=== PATIENT | female | born 1960 | race African-American/Black ===

== ENCOUNTER → 2020-06-30 13:29 | Outpatient (BNV) | payer OTHER, SELFPAY | PROVIDERS: PCP Internal Medicine; Visit Provider Internal Medicine | DX: D61.818 Other pancytopenia (principal) | CPT/HCPCS: 99213; 99214 ==

== ENCOUNTER → 2020-07-14 08:28 | Outpatient (BNVA) | payer OTHER, SELFPAY | PROVIDERS: PCP Internal Medicine; Visit Provider Physician Assistant | DX: Z76.89 Persons encountering health services in other specified circumstances (principal) ==

== ENCOUNTER → 2020-07-28 13:40 | Outpatient (BNVA) | payer OTHER, SELFPAY | PROVIDERS: PCP Internal Medicine; Visit Provider Nurse Practitioner | DX: Z76.89 Persons encountering health services in other specified circumstances (principal) ==

== ENCOUNTER 2020-09-29 13:00 | Outpatient (RCR) | payer OTHER, SELFPAY ==
--- NOTE | 2020-07-21 17:06 | MHC.PT.EP ---
[facility] [place] Office [place] Office [place] Office [address] [phone] F: [phone] F: [phone] F: [phone] F: [phone] Physical Therapy Plan of Care Date of Evaluation: 07/21/20 Date of Surgery: BARIATRIC JAN 06 2019 Diagnosis: PHYSICAL DECONDITIONING Assessment: Pt IS 60 YO F REFERRED TO PT FROM [facility] MANAGEMENT WITH DECONDITIONING, HOWEVER, MAIN ISSUE AT THIS TIME IS L MEDIAL KNEE PAIN. Pt HAD BARIATRIC SURGERY LAST DECEMBER AND HAS BEEN DOING WELL WITH WT LOSS AND EXERCISE BUT HAVING SOME MEDIAL KNEE PAIN ON L (ARTHROSCOPIC SURGERY IN PAST). 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 PRESENTS WITH L KNEE PAIN, LLD, SLIGHT DECREASE IN L KNEE EXTENSION. 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 SEEMS TO BENEFIT INITIALLY FROM 3 PART LIFT( 1/2 INCH) ADDED TO L SHOE AND KT TO UNLOAD L FAT PAD. Pt QUESTIONS ABILITY TO USE CARDIAC AREA FOR EXERCISE AT THIS TIME (COVID) Frequency and Duration: The patient will be seen 1X/WK X 6 WKS Short Term Goals: 1. I HEP WITH DC EX PLAN 2. INCREASED AWARENESS L KNEE CARE 3. IMPROVED GT PATTERN WITH LIFT 4. 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 DECREASED L KNEE PAIN AT LEAST 50% WITH ADLS 2. IMPROVED LEFI Treatment Plan: Modalities to reduce pain, spasms and effusion. Manual therapy to restore motion and function. Therapeutic exercise to improve strength and flexibility. Neuromuscular re-education for posture and balance. Therapeutic activities to return to functional activities of daily living. Electronically signed by: JONAS ROLAND PT Please sign and return to therapist. Thank you for your referral.
--- NOTE | 2020-10-02 14:04 | MHC.PT.DC ---
[facility] [place] Office [place] Office [place] Office [address] [facility] [phone] F: [phone] F: [phone] F: [phone] F: [phone] Physical Therapy Discharge Report Diagnosis: PHYSICAL DECONDITIONING Date of Surgery: BARIATRIC JAN 06 2019 Date of Evaluation: 07/21/20 Date of Discharge: 09/29/20 Treatments to Date: 7 Cancellations to Date: 1 No Shows to Date: 1 Discharge Status: Achieved Goals Discharge Summary: GOOD PERF EXS, HAS MET PT GOALS, Electronically signed by: JONAS ROLAND PT Please sign and return to therapist. Thank you for your referral.
== END 2020-10-02 14:10 | disposition other institution (70) ==
LOC: HO.PT 13:00
PROVIDERS: Visit Provider Physician Assistant
DX: R53.81 Other malaise (principal)
CPT/HCPCS: 97110; 97140; 97162; 97530

== ENCOUNTER → 2020-10-10 08:14 | Outpatient (BNVA) | payer OTHER, SELFPAY | PROVIDERS: PCP Nurse Practitioner Family; Visit Provider Dietitian, Registered ==

== ENCOUNTER → 2020-12-15 10:57 | Outpatient (BNVA) | payer OTHER, SELFPAY | PROVIDERS: PCP Nurse Practitioner Family; Referring Provider Internal Medicine; Visit Provider Physician Assistant ==

== ENCOUNTER 2021-01-25 07:37 | Outpatient (REF) | payer OTHER, SELFPAY ==
--- NOTE | ~2021-01-25 | XR_ITS ---
EXAMINATION: XR LUMBOSACRAL SPINE WITH OBLIQUES CLINICAL INFORMATION: Spondylolisthesis. COMPARISON: Previous lumbar spine x-ray September 2015. TECHNIQUE: 7 views of the spine including bilateral oblique and flexion and extension views. FINDINGS: There may be a transitional vertebral body segment or 6 lumbar-type vertebral bodies. For the purposes of this dictation, levels are designated to match the September 2015 dictation with the transitional segment designated inferiorly. No fracture or dislocation is seen. There is mild curvature of the lower lumbosacral spine to the right. There is mild 5 mm anterior subluxation of L4 with respect to L5. No instability on flexion-extension views is seen. This is new or increased compared to 2016 exam. There is degenerative disc disease at L5-S1 and at the transitional sacral articulation. There is bilateral lower lumbar spine facet arthritis. No pars defect is seen. XR/XR lumbar spine 6V w bending IMPRESSION: Transitional vertebral body segment. For the purposes of this dictation, transitional segment is designated inferiorly similar to September 2015 exam. 5 mm anterior subluxation of L4 with respect to L5 stable on flexion-extension views. Degenerative disc disease at L5-S1. Lower lumbar spine facet arthritis.
== END 2021-01-25 07:38 | disposition home or self-care (01) ==
LOC: HO.XRAY 07:37
PROVIDERS: PCP Internal Medicine; Visit Provider Anesthesiology
DX: M43.10 Spondylolisthesis, site unspecified (principal)
CPT/HCPCS: 72114

== ENCOUNTER → 2021-02-01 15:08 | Outpatient (BNVA) | payer OTHER, SELFPAY | PROVIDERS: PCP Internal Medicine; Visit Provider Anesthesiology ==

== ENCOUNTER → 2021-03-02 13:55 | Outpatient (BNVA) | payer OTHER, SELFPAY | PROVIDERS: PCP Nurse Practitioner Family; Visit Provider Nurse Practitioner ==

== ENCOUNTER 2021-03-15 12:09 | Day surgery (SDC) | payer OTHER, SELFPAY ==
[2021-03-08 15:08] VITALS: BMI 24.8
--- NOTE | 2021-03-14 10:54 | HO.ANESPROP2 ---
Documented by User: Rosenda Sandraney 03/14/21 11:01 HPI - Anesthesia Eval Consult details Narrative: 61yo F for Bilateral L3-L5 Diagnostic Medial Branch Block PMFSH Active Problems Active Problems: All Active Problems (Updated 02/01/21 @ 15:35 by Raghav Doan MD) Chronic pain syndrome (Acute) Spondylosis of lumbar region without myelopathy or radiculopathy (Acute) Spondylolisthesis (Acute) Anxiety and depression (Acute) Chronic idiopathic constipation (Acute) Family history of colon cancer (Acute) GERD (gastroesophageal reflux disease) (Acute) Intestinal malabsorption following gastrectomy (Acute) S/P laparoscopic sleeve gastrectomy (Acute) Arthritis of left knee (Acute) Pancytopenia (Chronic) Essential (primary) hypertension (Acute) Past Medical History Medical History (Updated 03/15/21 @ 12:47 by Karena Modi RN) Anxiety and depression CAD (coronary artery disease) Chronic pain syndrome Essential (primary) hypertension Hx of allergic rhinitis Intestinal malabsorption following gastrectomy Spondylolisthesis Spondylosis of lumbar region without myelopathy or radiculopathy Family History Family History Father No problems noted. Mother Lung cancer Brother Colon cancer Family/Other Intestinal cancer Maternal Grandmother Breast cancer Surgical History Surgical History History of bariatric surgery History of section History of cholecystectomy History of esophagogastroduodenoscopy (EGD) History of hysterectomy Hx of colonoscopy S/P laparoscopic sleeve gastrectomy Social History Social History Alcohol intake: current Alcohol intake frequency: does not drink Patient Tobacco Use Status: Tobacco use Unknown Advance Directives Information Provided: No Meds Allergies Allergy/AdvReac Type Severity Reaction Status Date / Time morphine [MORPHINE] Allergy Intermediate VOMITING Verified 03/15/21 12:48 amoxicillin [Amoxicillin] Allergy Mild HIVES Verified 03/15/21 12:48 sulfamethoxazole Allergy Mild HIVES Verified 03/15/21 12:48 [From Bactrim] trimethoprim [From Bactrim] Allergy Mild HIVES Verified 03/15/21 12:48 Home Medications Medication Instructions Recorded Confirmed Last Taken Type venlafaxine 75 mg tablet 75 mg PO DAILY tab 05/30/20 03/08/21 03/15/21 12:40 History vitamin A 10,000 unit capsule 2 cap PO DAILY 05/30/20 03/08/21 Unknown History cholecalciferol (vitamin D3) 25 25 mcg PO BID 06/30/20 03/08/21 Unknown History mcg (1,000 unit) tablet (Vitamin D3) cyanocobalamin (vitamin B-12) 2,000 mcg PO DAILY 06/30/20 03/08/21 Unknown History 2,000 mcg tablet,extended release (Vitamin B-12 ER) multivitamin 1 tab PO DAILY 06/30/20 03/08/21 Unknown History omeprazole 20 mg capsule,delayed 20 mg PO BID 07/28/20 03/08/21 Unknown History release aspirin 81 mg tablet,delayed 81 mg PO DAILY 12/15/20 03/08/21 03/01/21 History release sodium fluoride 1.1 %-potassium PO 03/02/21 Unknown History nitrate 5 % dental paste Exam Exam Date and Time: March 14, 2021 1054 Height,Weight and Vital Signs: Height 5 ft 6 in Weight 69.91 kg Assessment and Plan Assessment Anesthesia Assessment: Chart Reviewed Documented by User: Judie Snell 03/15/21 13:08 [facility] Past Medical History Medical History (Updated 03/15/21 @ 12:47 by Karena Modi RN) Anxiety and depression CAD (coronary artery disease) Chronic pain syndrome Essential (primary) hypertension Hx of allergic rhinitis Intestinal malabsorption following gastrectomy Spondylolisthesis Spondylosis of lumbar region without myelopathy or radiculopathy Functional capacity: independent ambulation Patient : No Family History Family History Father No problems noted. Mother Lung cancer Brother Colon cancer Family/Other Intestinal cancer Maternal Grandmother Breast cancer Family history of problems with anesthesia: No Surgical History Surgical History History of bariatric surgery History of section History of cholecystectomy History of esophagogastroduodenoscopy (EGD) History of hysterectomy Hx of colonoscopy S/P laparoscopic sleeve gastrectomy Social History Social History Alcohol intake: current Alcohol intake frequency: does not drink Patient Tobacco Use Status: Tobacco use Unknown Advance Directives Information Provided: No Meds Allergies Allergy/AdvReac Type Severity Reaction Status Date / Time morphine [MORPHINE] Allergy Intermediate VOMITING Verified 03/15/21 12:48 amoxicillin [Amoxicillin] Allergy Mild HIVES Verified 03/15/21 12:48 sulfamethoxazole Allergy Mild HIVES Verified 03/15/21 12:48 [From Bactrim] trimethoprim [From Bactrim] Allergy Mild HIVES Verified 03/15/21 12:48 Home Medications Medication Instructions Recorded Confirmed Last Taken Type venlafaxine 75 mg tablet 75 mg PO DAILY tab 05/30/20 03/08/21 03/15/21 12:40 History vitamin A 10,000 unit capsule 2 cap PO DAILY 05/30/20 03/08/21 Unknown History cholecalciferol (vitamin D3) 25 25 mcg PO BID 06/30/20 03/08/21 Unknown History mcg (1,000 unit) tablet (Vitamin D3) cyanocobalamin (vitamin B-12) 2,000 mcg PO DAILY 06/30/20 03/08/21 Unknown History 2,000 mcg tablet,extended release (Vitamin B-12 ER) multivitamin 1 tab PO DAILY 06/30/20 03/08/21 Unknown History omeprazole 20 mg capsule,delayed 20 mg PO BID 07/28/20 03/08/21 Unknown History release aspirin 81 mg tablet,delayed 81 mg PO DAILY 12/15/20 03/08/21 03/01/21 History release sodium fluoride 1.1 %-potassium PO 03/02/21 Unknown History nitrate 5 % dental paste Exam Airway Mallampati Class: II TM Dist: >3cm Neck ROM: Full Heart: RRR Lungs: CTA Assessment and Plan Final Anesthetic Review Family History of Problems with Anesthesia: No
--- NOTE | ~2021-03-15 | FL_ITS ---
EXAMINATION: XR FLUOROSCOPY WITH IMAGES CLINICAL INFORMATION: Medial branch block COMPARISON: Radiographs lumbar spine 01/25/2021 TECHNIQUE: Fluoroscopy performed by Dr. Raghav Doan. Fluoroscopy time: 0.6 minutes DAP: 5.04 Gycm2 Images: 6 FINDINGS: There is transitional vertebral body at S1 with partial lumbarization. There are spinal needles overlying the bilateral outer L3, L4, and L5 neural foramen. There is contrast seen in the respective nerve sheaths. Some early transforaminal epidural extension is suggested. No visible vascular communication. FL/FL guidance in OR IMPRESSION: Fluoroscopy for pain management procedures.
[2021-03-15 12:49] VITALS: BP 120/66; PULSE 65; RESP 16; TEMP 36.4; O2SAT 99
[2021-03-15] MEDS: Lactated Ringers 1,000 ML 100 ML IVCONT (13:11)
--- NOTE | 2021-03-15 14:30 | MHC.SHP ---
Pre-Procedural Eval Section A Date of Service: 03/15/21 Section B Chief Complaint: spondylosis without myelopathy Details of Present Illness: as above, low back pain Relevant Family History (Specify if Yes): No Relevant Social History: None Present Medications: see Short Stay Collaborative assessment Medical History: No relevant PMH History of Previous Operations: No relevant previous surgery Allergies: Allergies Allergy/AdvReac Type Severity Reaction Status Date / Time morphine [MORPHINE] Allergy Intermediate VOMITING Verified 03/15/21 12:48 amoxicillin [Amoxicillin] Allergy Mild HIVES Verified 03/15/21 12:48 sulfamethoxazole Allergy Mild HIVES Verified 03/15/21 12:48 [From Bactrim] trimethoprim [From Bactrim] Allergy Mild HIVES Verified 03/15/21 12:48 Review of Systems Sugical H&P ROS: Negative: Constitution, Cardiovascular, Respiratory, Neurological, Psychiatric, Hem-Onc, Allergic/Immunologic, Gastrointestinal, Genitourinary, Musculoskeletal, Integumentary, Endocrine and Eyes/Ears/Nose/Throat Exam Surgical H&P Exam: Normal: HEENT, Normal: Heart, Normal: Lungs, Normal: Extremities, Normal: Abdomen, Normal: Skin and Normal: Neurological Plan Diagnosis/Plan: Unchanged I have reviewed the history and physical and performed a pertinent physical examination on my patient. No changes have occurred unless specified.
[2021-03-15 15:14] VITALS: BP 104/58; PULSE 60; RESP 15; TEMP 36.6; O2SAT 100
--- NOTE | 2021-03-15 15:14 | W.PM.OPN ---
Operative Note Operative Note Date of Service: 03/15/21 Narrative: Lynn is very pleasant 61 years old female who is employ he of [employer] and who presented today for the operating room for L3-L4 does ramus L5 diagnostic medial branch block. After obtaining informed consent the patient was brought to the operating room and positioned prone on the operating table. [place] side of intensity old monitors were applied and patient was moderately sedated. Time-out was performed delineating correct name date of burst, side of the procedure, site of the procedure the risk of fire and DVT prophylaxis need. Antibiotics were not required. Lower back of the patient was prepped with ChloraPrep and draped with utility towels. Sterilely draped C-arm was brought over the operating field and sq picture of L3-L4 L5 and S1 vertebra as were demonstrated on the screen lumbarization of S1 vertebra was noted. No clear silhouette of S1-S2 facet joints was demonstrated. The plan remained unchanged. Attention was also attracted to sacroiliac joint bilaterally with significant sclerosis on the iliac portion of the joints bilaterally. The points of interest were delineated as the connection of the superior articular process of L4 and 5 vertebra bilaterally with corresponding transfer processes, as well as connection of the superior articular process of S1 vertebra with corresponding reduced sacral alae versus transverse processes of lumbarized S1 bilaterally as well. The projections of the points of interest to the skin was injected with lidocaine 2% 1 and 1/2 to 2 cc. After that 22 gauge 3-1/2 inch needle slightly bent at the tip was driven to the point of interest in tunnel vision fashion under fluoroscopy guidance. When needle gently contacted at the point of interest to the bone injection of the contrast was performed demonstrating no intrathecal and no intravascular uptake of the contrast. After that small amount of bupivacaine 0.5% no more than 1 cc per each injection was injected into each needle position. The patient tolerated procedure well she was awaken and taken outside of the operating room to PACU where she recovered uneventfully. She went home without immediate complications.
[2021-03-15 15:29] VITALS: BP 114/64; PULSE 61; RESP 16; O2SAT 100
[2021-03-15 15:44] VITALS: BP 121/67; PULSE 60; RESP 16
[2021-03-15 16:00] VITALS: BP 131/73; PULSE 66; RESP 16; TEMP 36.6; O2SAT 100
[2021-03-15 16:15] VITALS: BP 149/66; PULSE 58; RESP 16; TEMP 36.6; O2SAT 100
--- NOTE | 2021-03-15 17:19 | P.OP_ITS ---
Operative Note Operative Note Date of Service: 03/15/21 Narrative: Lynn is very pleasant 61 years old female who is employ he of [employer] and who presented today for the operating room for L3-L4 does ramus L5 diagnostic medial branch block. After obtaining informed consent the patient was brought to the operating room and positioned prone on the operating table. Martiniqu[place] side of intensity old monitors were applied and patient was moderately sedated. Time-out was performed delineating correct name date of burst, side of the procedure, site of the procedure the risk of fire and DVT prophylaxis need. Antibiotics were not required. Lower back of the patient was prepped with ChloraPrep and draped with utility towels. Sterilely draped C-arm was brought over the operating field and sq picture of L3-L4 L5 and S1 vertebra as were demonstrated on the screen lumbari zation of S1 vertebra was noted. No clear silhouette of S1-S2 facet joints was demonstrated. The plan remained unchanged. Attention was also attracted to sacroiliac joint bilaterally with significant sclerosis on the iliac portion of the joints bilaterally. The points of interest were delineated as the connection of the superior articular process of L4 and 5 vertebra bilaterally with corresponding transfer processes, as well as connection of the superior articular process of S1 vertebra with corresponding reduced sacral alae versus transverse processes of lumbarized S1 bilaterally as well. The projections of the points of interest to the skin was injected with lidocaine 2% 1 and 1/2 to 2 cc. After that 22 gauge 3-1/2 inch needle slightly bent at the tip was driven to the point of interest in tunnel vision fashion under fluoroscopy guidance. When needle gently contacted at the point of interest to the bone injection of the contrast was performed demonstrating no intrathecal and no intravascular uptake of the contrast. After that small amount of bupivacaine 0.5% no more than 1 cc per each injection was injected into each needle position. The patient tolerated procedure well she was awaken and taken outside of the operating room to PACU where she recovered uneventfully. She went home without immediate complications.
== END 2021-03-15 16:50 | disposition home or self-care (01) ==
PROVIDERS: PCP Internal Medicine; Visit Provider Anesthesiology
PROC: (CPT 64493; principal; 2021-03-15 14:10)
DX: M47.816 Spondylosis without myelopathy or radiculopathy, lumbar region (principal); M54.5 Low back pain; G89.4 Chronic pain syndrome; M43.10 Spondylolisthesis, site unspecified; M53.3 Sacrococcygeal disorders, not elsewhere classified; I10 Essential (primary) hypertension; R60.9 Edema, unspecified; Z79.899 Other long term (current) drug therapy; Z79.82 Long term (current) use of aspirin; Z88.1 Allergy status to other antibiotic agents; Z88.2 Allergy status to sulfonamides; Z88.8 Allergy status to other drugs, medicaments and biological substances; Z98.84 Bariatric surgery status; Z90.3 Acquired absence of stomach [part of]; Z90.710 Acquired absence of both cervix and uterus; Z90.49 Acquired absence of other specified parts of digestive tract
CPT/HCPCS: 64493; 64494 ×2; J2250; Q9967

== ENCOUNTER → 2021-03-22 15:47 | Outpatient (BNVA) | payer OTHER, SELFPAY | PROVIDERS: PCP Internal Medicine; Visit Provider Nurse Practitioner Family ==

== ENCOUNTER → 2021-03-23 08:06 | Outpatient (BNVA) | payer OTHER, SELFPAY | PROVIDERS: PCP Nurse Practitioner Family; Visit Provider Dietitian, Registered | DX: K90.49 Malabsorption due to intolerance, not elsewhere classified (principal); I10 Essential (primary) hypertension; I25.10 Atherosclerotic heart disease of native coronary artery without angina pectoris; M43.16 Spondylolisthesis, lumbar region; M47.816 Spondylosis without myelopathy or radiculopathy, lumbar region; Z90.3 Acquired absence of stomach [part of]; Z88.1 Allergy status to other antibiotic agents; Z88.5 Allergy status to narcotic agent; Z88.2 Allergy status to sulfonamides; Z88.8 Allergy status to other drugs, medicaments and biological substances; Z98.84 Bariatric surgery status | CPT/HCPCS: 97803 ==

== ENCOUNTER → 2021-06-15 08:03 | Outpatient (BNVA) | payer OTHER, SELFPAY | PROVIDERS: PCP Nurse Practitioner Family; Visit Provider Physician Assistant Surgical ==

== ENCOUNTER → 2021-09-07 14:35 | Outpatient (BNVA) | payer OTHER, SELFPAY | PROVIDERS: PCP Nurse Practitioner Family; Referring Provider Nurse Practitioner Family; Visit Provider Nurse Practitioner ==

== ENCOUNTER 2021-10-01 16:09 | Outpatient (REF) | payer OTHER, SELFPAY ==
--- NOTE | ~2021-10-01 | XR_ITS ---
EXAMINATION: XR HAND, LEFT CLINICAL INFORMATION: Contusion of left hand. COMPARISON: None TECHNIQUE: PA, lateral, and oblique views of the left hand. FINDINGS: The bones and soft tissues are normal. No fracture. Alignment is anatomic. Joint spaces are maintained. No erosions or soft tissue calcifications. XR/XR hand LT min 3V IMPRESSION: Unremarkable left hand exam.
== END 2021-10-01 16:10 | disposition home or self-care (01) ==
LOC: HO.HMGCX 16:09
PROVIDERS: PCP Internal Medicine; Visit Provider Internal Medicine
DX: S60.222A Contusion of left hand, initial encounter (principal)
CPT/HCPCS: 73130

== ENCOUNTER 2022-01-04 10:31 | Outpatient (REF) | payer OTHER, SELFPAY ==
[2022-01-04 11:24] LABS: MANUAL DIFF FLAG NO
[2022-01-04 11:43] LABS: Basophils Percent Auto 0.5 % (0-2); Eosinophils Absolute Auto 0.3 X10*3/uL (0.0-0.4); Hematocrit 39.2 % (37.0-47.0); Hemoglobin 12.8 g/dl (12.0-16.0); Imm Gran Abs Auto 0.02 X10*3/uL (0.00-0.03); Imm Gran Pct Auto 0.5 % (0.0-0.4); Lymphocytes Absolute Auto 1.7 X10*3/uL (1.2-4.9); Lymphocytes Percent Auto 46.9 % (20-40); Mean Corpuscular HGB Conc 32.7 g/dl (31.0-35.0); Mean Corpuscular Hemoglobin 29.6 pg (27.0-33.0); Mean Corpuscular Volume 90.7 fL (80.0-98.0); Mean Platelet Volume 11.2 fL (9.4-12.3); Monocytes Absolute Auto 0.3 X10*3/uL (0.1-1.2); Neutrophils Absolute Auto 1.3 x10*3/uL (2.0-8.3); Neutrophils Percent Auto 34.1 % (45-73); Platelet Count 115 X10*3/uL (160-400); Red Blood Count 4.32 X10*6/uL (4.20-5.50); Red Cell Distribution Width 12.5 % (11.0-16.0); White Blood Count 3.7 X10*3/uL (4.8-10.8)
[2022-01-04 12:09] LABS: Anion Gap 10 (12-20); Blood Urea Nitrogen 11 mg/dL (9-16); Calcium 9.4 mg/dL (8.4-10.2); Carbon Dioxide 26 mmol/L (22-29); Chloride 107 mmol/L (96-108); Cholesterol 160 mg/dL; Estimated Glomerular Filt Rate > 60; Glucose Random 92 mg/dL (60-115); HDL Cholesterol 69 mg/dL; Iron 94 mcg/dL (30-160); LDL Cholesterol Calculated 80 mg/dl; Percent Iron Saturation 30 % (15-50); Potassium 4.2 mmol/L (3.3-5.1); Sodium 139 mmol/L (135-145); Total Iron Binding Capacity 315 mcg/dL (228-428); Triglycerides 59 mg/dL; Unsaturated Iron Binding 221 ug/dL
[2022-01-04 12:25] LABS: Ferritin 174 ng/mL (10-250); Insulin 19 uU/mL (2-29); TSH reflex Free T4 0.74 uIU/mL (0.32-4.0); Vitamin D 25-OH Total 31.1 ng/mL (>30)
[2022-01-04 12:56] LABS: Folate > 20.0 ng/mL (> or = 4.0); Vitamin B12 > 2000 pg/mL (200-900)
[2022-01-08 13:41] LABS: Calcium (PTHI) 9.4 mg/dL (8.6-10.4); PTHI 50 pg/mL (16-77)
[2022-01-09 05:22] LABS: Zinc 70 mcg/dL (60-130)
[2022-01-09 16:01] LABS: Vitamin B1 32 nmol/L (8-30)
[2022-01-09 22:26] LABS: Vitamin A 32 mcg/dL (38-98)
== END 2022-01-04 10:32 | disposition home or self-care (01) ==
LOC: HO.LAB 10:31
PROVIDERS: PCP Internal Medicine; Visit Provider Physician Assistant Surgical
DX: Z98.84 Bariatric surgery status (principal); Z71.3 Dietary counseling and surveillance; Z79.899 Other long term (current) drug therapy
CPT/HCPCS: 36415; 80048; 80061; 82306; 82607; 82728; 82746; 83525; 83540; 83970; 84425; 84443; 84590; 84630; 85025

== ENCOUNTER 2022-03-02 07:57 | Outpatient (REF) | payer OTHER, SELFPAY ==
[2022-03-02 10:16] LABS: Alanine Aminotransferase 30 U/L (0-31); Albumin Level 3.8 g/dL (3.5-5.0); Alkaline Phosphatase 81 U/L (39-117); Anion Gap 9 (12-20); Aspartate Amino Transferase 31 U/L (5-31); Bilirubin Total 0.3 mg/dL (0.0-1.0); Blood Urea Nitrogen 10 mg/dL (9-16); Calcium 8.9 mg/dL (8.4-10.2); Carbon Dioxide 28 mmol/L (22-29); Chloride 109 mmol/L (96-108); Estimated Glomerular Filt Rate > 60; Glucose Random 80 mg/dL (60-115); Sodium 142 mmol/L (135-145); Total Protein 6.9 g/dL (6.5-8.0)
[2022-03-02 10:47] LABS: Rheumatoid Factor < 15.0 IU/mL (<15.0)
[2022-03-05 15:11] LABS: Anti Nuclear Antibody Screen POSITIVE (NEGATIVE)
== END 2022-03-02 07:58 | disposition home or self-care (01) ==
LOC: HO.LAB 07:57
PROVIDERS: PCP Internal Medicine; Visit Provider Nurse Practitioner Family
DX: R60.0 Localized edema (principal); M79.661 Pain in right lower leg; M79.662 Pain in left lower leg; R53.83 Other fatigue
CPT/HCPCS: 36415; 80053; 83735; 86038; 86039; 86431

== ENCOUNTER 2022-04-02 12:41 | Outpatient (REF) | payer OTHER, SELFPAY ==
[2022-04-02 13:10] LABS: MANUAL DIFF FLAG NO
[2022-04-02 13:23] LABS: Eosinophils Absolute Auto 0.4 X10*3/uL (0.0-0.4); Eosinophils Percent Auto 9.1 % (0-4); Hematocrit 38.6 % (37.0-47.0); Hemoglobin 12.4 g/dl (12.0-16.0); Imm Gran Abs Auto 0.01 X10*3/uL (0.00-0.03); Imm Gran Pct Auto 0.2 % (0.0-0.4); Lymphocytes Absolute Auto 1.9 X10*3/uL (1.2-4.9); Lymphocytes Percent Auto 46.6 % (20-40); Mean Corpuscular HGB Conc 32.1 g/dl (31.0-35.0); Mean Corpuscular Hemoglobin 28.8 pg (27.0-33.0); Mean Corpuscular Volume 89.8 fL (80.0-98.0); Mean Platelet Volume 10.9 fL (9.4-12.3); Monocytes Absolute Auto 0.3 X10*3/uL (0.1-1.2); Monocytes Percent Auto 8.1 % (2-11); Neutrophils Absolute Auto 1.4 x10*3/uL (2.0-8.3); Platelet Count 126 X10*3/uL (160-400); Red Cell Distribution Width 12.5 % (11.0-16.0); White Blood Count 4.1 X10*3/uL (4.8-10.8)
== END 2022-04-02 12:42 | disposition home or self-care (01) ==
LOC: HO.LAB 12:41
PROVIDERS: PCP Internal Medicine; Visit Provider Nurse Practitioner Family
DX: R53.83 Other fatigue (principal); R76.8 Other specified abnormal immunological findings in serum
CPT/HCPCS: 36415; 85025

== ENCOUNTER → 2022-04-05 09:34 | Outpatient (REF) | payer OTHER, SELFPAY ==
--- NOTE | 2022-04-05 09:38 | CA_ITS ---
Transthoracic Echocardiogram Patient (Last, First, Middle): Lynn Biggs, Gender: Female Date of : 1960 Age: 62 Procedure Date: 04/05/2022 Procedure Type: Transthoracic Echocardiogram Location: OP Height: 167.64 cm Weight: 70.76 kg BSA: 1.80 m2 Heart Rate: 64 bpm BP: 112 / 70 mmHg Sql Etl Developer: SB Referring MD: Mady VEGA Symptoms: R60.0 - Localized edema Study Quality: Adequate ECG Rhythm: Sinus Conclusions: - The left ventricular systolic function is normal. The calculated ejection fraction is 71% by biplane method. - No obvious valvular pathology seen on this study. Findings Left Ventricle Normal left ventricular cavity size. There is normal left ventricular wall thickness. The left ventricular systolic function is normal. The calculated ejection fraction is 71% by biplane method. There is no evidence of regional wall motion abnormalities. Diastolic function is normal for age. LV peak GLS -22.3% (normal). Right Ventricle Normal right ventricular cavity size and systolic function. Atria Both atria are normal in size. Aortic Valve There is a normal trileaflet aortic valve. There is no aortic valve stenosis. There is no aortic valve regurgitation. Mitral Valve The mitral valve appears normal. There is trace mitral valve regurgitation. There is no mitral valve stenosis. Pulmonic Valve The pulmonic valve is likely normal. Tricuspid Valve Normal tricuspid valve structure. There is trace tricuspid valve regurgitation. There is no evidence of pulmonary hypertension. Great Vessels The aortic annulus, sinuses of valsalva, asc aorta, and aortic arch are normal in size. Venous The inferior vena cava is normal in size and collapses greater than 50% with inspiration. Pericardium/Pleural There is no evidence of pericardial effusion. Prior Study Comparison No prior study available for comparison. Recommendations, Care & Conclusions No obvious valvular pathology seen on this study. Measurements 2D Linear Measurements IVSd: 0.71 0.6-0.9/0.6-1.0 cm LVIDd: 4.98 3.9-5.3/4.2-5.9 cm LVIDd Index: 2.77 2.4-3.2/2.2-3.1 cm/m2 LVIDs: 3.18 2.0-3.6 cm LVPWd: 0.63 0.7-1.1 cm LA Diam: 3.40 2.7-3.8/3.0-4.0 cm LAIDs Index: 1.89 1.5-2.3 cm/m2 LV Mass: 134.46 67-162/88-224 g LV Mass Index: 74.70 43-95/49-115 g/m2 LVOT Diam: 2.20 3.0+(-)1.3 cm 2D Systolic Function EF 4C: 67.90 >55% EF 2C: 74.40 >55% EF BiP: 71.40 >55% Mitral Valve MV Pk E: 0.76 MV PK A: 0.50 MV Decel Time: 235.00 E/A: 1.50 E'Lateral: 11.90 E'Medial: 8.38 E/E' Med: 9.10 E/E' Lat: 6.40 PHT: 69.00 MVA PHT: 3.19 Decel Leake: 3.22 Aortic Valve AoV Pk Mike: 1.64 AoV Mn Mike: 1.17 AoV VTI: 0.35 AoV Pk Grad: 11.00 Aov Mn Grad: 6.00 SERGIO Cont.VTI: 2.83 LVOT LVOT Pk Mike: 1.25 LVOT Mn Mike: 0.85 LVOT VTI: 0.26 LVOT Pk Grad: 6.00 LVOT Mn Grad: 3.00 LVOT Diam: 2.20 LVOT Area: 3.80 Diastolic Function MV Pk E: 0.76 MV Pk A: 0.50 E/A: 1.50 E'Medial: 8.38 E/E' Med: 9.10 E' Laterial: 11.90 E/E' Lat: 6.40 Right Ventricle TAPSE (mm): 23.40 TVS' Mike: 12.70 Tricuspid Valve TR Pk Mike: 2.03 TR Pk Grad: 16.00 RA Press: 3.00 RVSP: 19.00 Great Vessels Aorta Sinus of Valsalva: 2.90 2.0-3.5 cm Ao Asc: 3.10 2.1-3.4 cm Ao Arch: 2.40 Pulmonary Veins Pulm Vein S/D 1.20 Pulmonary Valve PV Pk Mike: 0.87 Peak PV Grad: 3.00 Updated in Other Vendor System with Status of Final Vineet Marsh MD electronically signed on 04/07/2022 12:23:59 PM with status of Final
== END ==
LOC: HO.CARD 09:34
PROVIDERS: PCP Internal Medicine; Visit Provider Nurse Practitioner Family
DX: R60.0 Localized edema (principal)
CPT/HCPCS: 93306; 93356

== ENCOUNTER 2022-07-19 16:26 | Outpatient (REF) | payer OTHER, SELFPAY ==
--- NOTE | ~2022-07-19 | XR_ITS ---
EXAMINATION: XR CHEST CLINICAL INFORMATION: Cough COMPARISON: Previous chest x-ray May 2019 TECHNIQUE: Frontal view of the chest was obtained. FINDINGS: No significant abnormality is noted involving the heart, lungs, mediastinum, bony thorax or soft tissues. XR/XR chest 1V IMPRESSION: Unremarkable examination.
== END 2022-07-19 16:27 | disposition home or self-care (01) ==
LOC: HO.XRAY 16:26
PROVIDERS: PCP Internal Medicine; Visit Provider Internal Medicine
DX: R05.9 Cough, unspecified (principal)
CPT/HCPCS: 71045

== ENCOUNTER 2022-08-23 16:53 | Outpatient (REF) | payer OTHER, SELFPAY ==
[2022-08-23 17:53] LABS: Alanine Aminotransferase 32 U/L (0-31); Albumin Level 4.1 g/dL (3.5-5.0); Alkaline Phosphatase 78 U/L (39-117); Anion Gap 13 (12-20); Aspartate Amino Transferase 32 U/L (5-31); Bilirubin Direct 0.2 mg/dL (0.0-0.5); Bilirubin Total 0.5 mg/dL (0.0-1.0); Blood Urea Nitrogen 8 mg/dL (9-16); Calcium 9.4 mg/dL (8.4-10.2); Carbon Dioxide 27 mmol/L (22-29); Chloride 104 mmol/L (96-108); Cholesterol 164 mg/dL; Estimated Glomerular Filt Rate > 60; Glucose Random 89 mg/dL (60-115); HDL Cholesterol 72 mg/dL; LDL Cholesterol Calculated 81 mg/dl; Potassium 3.5 mmol/L (3.3-5.1); Sodium 140 mmol/L (135-145); Total Protein 7.5 g/dL (6.5-8.0); Triglycerides 57 mg/dL
[2022-08-23 18:07] LABS: Thyroid Stimulating Hormone 1.98 uIU/mL (0.32-4.0)
== END 2022-08-23 16:54 | disposition home or self-care (01) ==
LOC: HO.LAB 16:53
PROVIDERS: PCP Internal Medicine; Visit Provider Internal Medicine
DX: Z00.00 Encounter for general adult medical examination without abnormal findings (principal)
CPT/HCPCS: 36415; 80048; 80061; 80076; 84443

== ENCOUNTER 2022-10-14 14:32 | Outpatient (REF) | payer OTHER, SELFPAY ==
--- NOTE | ~2022-10-14 | XR_ITS ---
EXAMINATION: XR KNEE, LEFT CLINICAL INFORMATION: Pain. COMPARISON: Radiographs dated 05/12/2015. TECHNIQUE: AP, lateral and sunrise views of the left knee. FINDINGS: Bony mineralization is normal. There is moderate asymmetric narrowing of the medial joint space compartment, with peripheral osteophyte formation. The lateral joint space compartment is well-maintained and shows minimal peripheral osteophyte formation. There is mild narrowing of the patellofemoral compartment, with peripheral osteophyte formation. No fracture, dislocation or significant joint effusion is seen. There is no foreign body. XR/XR knee LT 3V IMPRESSION: There is tricompartment osteoarthritic change of the left knee, most pronounced of the medial joint space compartment, where it is moderate.
[2022-10-14 16:56] LABS: C Reactive Protein < 0.10 mg/dL (< or = 0.50)
[2022-10-14 17:04] LABS: Erythrocyte Sedimentation Rate 10 MM/HR (0-20)
[2022-10-14 17:43] LABS: Total Protein Urine Random < 7 mg/dL (<12)
[2022-10-15 13:48] LABS: Complement C3 103 mg/dL (83-193)
[2022-10-18 21:43] LABS: Anti DNA DS Antibody 2 IU/mL; SM/Ribonucleoprotein Ab <1.0 NEG AI (<1.0 NEG); Smith Protein <1.0 NEG AI (<1.0 NEG)
== END 2022-10-14 14:33 | disposition home or self-care (01) ==
LOC: HO.LAB 14:32
PROVIDERS: PCP Internal Medicine; Visit Provider Internal Medicine Rheumatology
DX: R76.8 Other specified abnormal immunological findings in serum (principal); G89.29 Other chronic pain; R20.0 Anesthesia of skin; M17.12 Unilateral primary osteoarthritis, left knee; M47.816 Spondylosis without myelopathy or radiculopathy, lumbar region; M25.562 Pain in left knee
CPT/HCPCS: 36415; 73562; 84156; 85652; 86140; 86160; 86225; 86235

== ENCOUNTER → 2022-11-13 15:04 | Outpatient (BNVA) | payer OTHER, SELFPAY | PROVIDERS: PCP Internal Medicine; Visit Provider Nurse Practitioner | DX: Z13.89 Encounter for screening for other disorder (principal) ==

== ENCOUNTER 2022-11-19 09:28 | Outpatient (REF) | payer OTHER, SELFPAY ==
--- NOTE | ~2022-11-19 | XR_ITS ---
EXAMINATION: XR HAND, LEFT CLINICAL INFORMATION: Left hand pain COMPARISON: Left hand 10/01/2021. TECHNIQUE: PA, lateral, and oblique views of the left hand. FINDINGS: There is minimal loss of PIP and DIP joint space with soft tissue calcification along the DIP joint fifth digit with subchondral cortical lucencies distal end of proximal phalanx second through fourth digits. But adjacent to the joint space. No bony erosive changes seen at the joint. Some of the findings are new since previous study compared to 10/01/2021. There are subchondral cystic changes along the second metacarpal head. XR/XR hand LT min 3V IMPRESSION: The composite findings are suspicious for CPPD or erosive arthritis. No periarticular spurring seen. No acute fracture or dislocation.
== END 2022-11-19 09:29 | disposition home or self-care (01) ==
LOC: HO.HOSX 09:28
PROVIDERS: Visit Provider Orthopaedic Surgery
DX: R20.0 Anesthesia of skin (principal); M65.342 Trigger finger, left ring finger
CPT/HCPCS: 20550; 73130; J1100

== ENCOUNTER 2022-12-10 15:00 | Outpatient (RCR) | payer OTHER, SELFPAY ==
--- NOTE | 2022-11-15 12:33 | MHC.PT.EP ---
[facility] [place] Office [place] Office [place] Office [address] [phone] F: [phone] F: [phone] F: [phone] F: [phone] Physical Therapy Plan of Care Date of Evaluation: Date of Surgery: NA. HX OF L MEDIAL MENISCUS REPAIR Diagnosis: OSTEOARTHRITIS L KNEE Assessment: Pt IS 62 YO F WITH HX OF GASTRIC SLEEVE WITH SIGNIF WT LOSS WHO HAS HAD PT IN THE PAST WITH GOOD RESULTS. Pt REPORTS MENISCAL REPAIR ON L KNEE IN PAST. PRESENTS WITH SLIGHTLY LIMITED KNEE EXT (B), TTP MED JT/PES AREA, AND C/O PAIN AFFECTING ADLS. 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 SHOULD BENEFIT FROM PT TO ADDRESS KNEE ISSUES Frequency and Duration: The patient will be seen 2X/WK X 4 WKS Short Term Goals: 1. INCREASED AWARENESS KNEE CARE 2. 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 I HEP WITH DC EX PLAN 2. DECREASED L KNEE PAIN AT LEAST 50% WITH ADLS 3. IMPROVED LEFI Treatment Plan: Modalities to reduce pain, spasms and effusion. Manual therapy to restore motion and function. Therapeutic exercise to improve strength and flexibility. Neuromuscular re-education for posture and balance. Therapeutic activities to return to functional activities of daily living. Electronically signed by: JONAS ROLAND PT Please sign and return to therapist. Thank you for your referral.
--- NOTE | 2022-12-13 12:20 | MHC.PT.DC ---
[facility] [place] Office [place] Office [place] Office [address] [facility] [phone] F: [phone] F: [phone] F: [phone] F: [phone] Physical Therapy Discharge Report Diagnosis: OSTEOARTHRITIS L KNEE Date of Surgery: NA. HX OF L MEDIAL MENISCUS REPAIR Date of Evaluation: 11/15/22 Date of Discharge: 12/13/22 Treatments to Date: 6 Cancellations to Date: No Shows to Date: Discharge Status: Achieved Goals Improved Function Independent with HEP Discharge Summary: HAS MET PT GOALS LEFI=63/72 Electronically signed by: JONAS ROLAND PT Please sign and return to therapist. Thank you for your referral.
== END 2022-12-13 12:21 | disposition home or self-care (01) ==
LOC: HO.PT 15:00
PROVIDERS: PCP Internal Medicine; Visit Provider Internal Medicine Rheumatology
DX: M17.12 Unilateral primary osteoarthritis, left knee (principal)
CPT/HCPCS: 97110; 97161; 97535

== ENCOUNTER 2023-01-16 10:13 | Outpatient (REF) | payer OTHER, SELFPAY ==
--- NOTE | 2023-01-16 10:16 | EMG_ITS ---
Left median and ulnar motor and sensory studies were performed. Left radial and sensory study was performed and paraspinal muscles were tested with a needle. IMPRESSION: Mild to moderate left median neuropathy across carpal tunnel. MD NAUN Cartagena/TANAI / [phone]
== END 2023-01-16 10:14 | disposition home or self-care (01) ==
LOC: HO.NEURO 10:13
PROVIDERS: PCP Internal Medicine; Visit Provider Orthopaedic Surgery
DX: R20.0 Anesthesia of skin (principal); R20.2 Paresthesia of skin
CPT/HCPCS: 95886; 95909

== ENCOUNTER 2023-02-07 10:15 | Outpatient (REF) | payer OTHER, SELFPAY ==
[2023-02-07 10:56] LABS: Hematocrit 39.6 % (37.0-47.0); Hemoglobin 12.9 g/dl (12.0-16.0); Mean Corpuscular HGB Conc 32.6 g/dl (31.0-35.0); Mean Platelet Volume 11.2 fL (9.4-12.3); Platelet Count 127 X10*3/uL (160-400); Red Blood Count 4.45 X10*6/uL (4.20-5.50); Red Cell Distribution Width 12.3 % (11.0-16.0); White Blood Count 3.5 X10*3/uL (4.8-10.8)
[2023-02-07 11:32] LABS: Erythrocyte Sedimentation Rate 10 MM/HR (0-20)
[2023-02-07 12:35] LABS: Alanine Aminotransferase 37 U/L (0-31); Albumin Level 3.8 g/dL (3.5-5.0); Alkaline Phosphatase 80 U/L (39-117); Anion Gap 13 (12-20); Aspartate Amino Transferase 38 U/L (5-31); Bilirubin Direct 0.1 mg/dL (0.0-0.5); Bilirubin Total 0.5 mg/dL (0.0-1.0); Blood Urea Nitrogen 8 mg/dL (9-16); Calcium 9.3 mg/dL (8.4-10.2); Carbon Dioxide 27 mmol/L (22-29); Chloride 107 mmol/L (96-108); Cholesterol 155 mg/dL; Estimated Glomerular Filt Rate > 60; Glucose Random 79 mg/dL (60-115); HDL Cholesterol 65 mg/dL; LDL Cholesterol Calculated 81 mg/dl; Potassium 3.7 mmol/L (3.3-5.1); Sodium 143 mmol/L (135-145); Total Protein 7.4 g/dL (6.5-8.0); Triglycerides 45 mg/dL
[2023-02-07 12:39] LABS: Thyroid Stimulating Hormone 1.57 uIU/mL (0.32-4.0)
== END 2023-02-07 10:16 | disposition home or self-care (01) ==
LOC: HO.LAB 10:15
PROVIDERS: PCP Internal Medicine; Visit Provider Internal Medicine
DX: I10 Essential (primary) hypertension (principal)
CPT/HCPCS: 36415; 80048; 80061; 80076; 84443; 85027; 85652

== ENCOUNTER 2023-02-19 15:44 | Outpatient (AMB) | payer OTHER, SELFPAY ==
--- NOTE | 2023-02-19 15:45 | MHC.OFFVIS ---
Intake Vital Signs 02/19/23 16:05 Height 5 ft 6 in Weight 161 lb BMI 26.0 Intake Visit Reasons: OV - Left Ring finger lump and knot Intake Note: Lynn 63 yr old female presents today for her EMG review. Patient also is s/p left ring finger injection from 11/19/22. Patient states injection made her hand lump harder and but has helped with locking of finger . Patient is interested in discussing surgery. Allergies morphine [MORPHINE] Allergy (Intermediate, Verified 02/19/23 16:03) VOMITING amoxicillin [Amoxicillin] Allergy (Mild, Verified 02/19/23 16:03) HIVES sulfamethoxazole [From Bactrim] Allergy (Mild, Verified 02/19/23 16:03) HIVES trimethoprim [From Bactrim] Allergy (Mild, Verified 02/19/23 16:03) HIVES HPI OV - Left Ring finger lump and knot HPI Details Lynn is a 63 year old right hand dominant woman, who works here in the [place], presenting for a NCS review of her left hand numbness. She complains of numbness in the median nerve distribution, intermittent but daily for ~6 months now. She continues to have a shooting pain in her ring finger when grasping objects. This is usually related to her mass near the A1 andi of the ring finger when she is grasping objects. She says she has occasional locking or catching. She had a trigger finger injection on 11/19/22, with some relief. She follows with Rheumatology, and has a positive WENDY. She says she has early-onset Lupus [facility] Medical History Anxiety and depression CAD (coronary artery disease) Chronic pain syndrome COVID-19 Essential (primary) hypertension Hx of allergic rhinitis Intestinal malabsorption following gastrectomy Spondylolisthesis Spondylosis of lumbar region without myelopathy or radiculopathy Surgical History History of bariatric surgery History of section History of cholecystectomy History of esophagogastroduodenoscopy (EGD) History of hysterectomy Hx of colonoscopy S/P laparoscopic sleeve gastrectomy Family History Father No problems noted. 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[employer] [place] Cognitive needs: No Hearing needs: No Vision needs: Yes (glasses) Review of Systems Const All systems reviewed & are unremarkable except as noted in HPI and below Physical Exam Vital Signs: BMI result Body Mass Index 26.0 Const General: no acute distress and alert Orientation/consciousness: patient oriented x3 Neuro General: patient oriented x3 Extrem Other: Evaluation of Left Upper Extremity: The patient is alert, oriented, and in no acute distress Neuro: Median, Ulnar, Radial nerves motor and sensory intact and sensation is normal to the tips of all digits No thenar or intrinsic wasting Good APB muscle belly firing and good finger cross Vascular: Cap refill brisk ROM: She can make a fist and extend all her digits Most tender over the ring finger a1 andi, and has some mild swelling in this area She has a mass/possible retinacular cyst just ulnar and a little proximal to the ring finger a1 andi, This is ~1cm in diameter, midly-tender, and not mobile this is the most bothersome when pressure is applied via grabbing objects or placing her hand flat on the table No visible locking or catching today. 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 Bernardo Duffy MD 01/16/2023 Psych Appearance: grossly normal Affect: normal affect Attitude: cooperative Assessment & Plan Assessment & Plan (1) Trigger finger, left ring finger: Code(s): M65.342 - Trigger finger, left ring finger (2) Carpal tunnel syndrome of left wrist: Code(s): G56.02 - Carpal tunnel syndrome, left upper limb (3) Numbness of right hand: Code(s): R20.0 - Anesthesia of skin (4) Mass of finger of left hand: Code(s): R22.32 - Localized swelling, mass and lump, left upper limb Plan Assessment & Plan: 1. Left ring finger trigger finger, S/P injection Possible pre-trigger Tenosynovitis Date of injection: 11/19/22 2. 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 Left carpal tunnel syndrome, mild-moderate Symptoms intermittent, but daily, worse at night I educated her about these conditions I discussed treatment options The patient would like to proceed with surgery, and she would like to be put to sleep The risks and benefits of operative treatment were discussed with the patient and the patient wishes to proceed with surgery. These risks include, but are not limited to risk of damage to blood vessels, nerves, tendons, infection, recurrence, incomplete relief of preoperative symptoms, persistent pain, possible need for further surgery and the risks associated with regional blocks and anesthesia. The plan is to take the patient to the operating room sometime in the next few weeks for the following procedures: 1. Left carpal tunnel release, under general 2. Left ring trigger finger release, under general 3. Left hand mass excision, under general All of the preoperative paperwork including the consent was filled out today. All the patient's questions were answered. The patient understands that they will be contacted by our sales person soon to schedule this procedure She denies Diabetes, blood thinners, asthma, heart, lung, kidney issues 4. Right hand numbness In the median nerve distribution Symptoms intermittent, but daily, worse at night Her NCS was performed only on the left side Scribed for Ericka Montaño MD by [employer] medical insurance verifier, on 02/19/23 at 4:00 PM, EST. Coding Level of Care Code Est Pt Level 4 (69743) Diagnoses Trigger finger, left ring finger M65.342 Carpal tunnel syndrome of left wrist G56.02 Numbness of right hand R20.0 Mass of finger of left hand R22.32
[2023-02-19 16:05] VITALS: BMI 26.0
== END 2023-02-19 16:20 | disposition home or self-care (01) ==
LOC: HO.HOS 15:44
PROVIDERS: PCP Internal Medicine; Visit Provider Orthopaedic Surgery
DX: M65.342 Trigger finger, left ring finger (principal); G56.02 Carpal tunnel syndrome, left upper limb; R22.32 Localized swelling, mass and lump, left upper limb; R20.0 Anesthesia of skin
CPT/HCPCS: 99214

== ENCOUNTER → 2023-02-19 15:44 | Outpatient (BNVA) | payer OTHER, SELFPAY | PROVIDERS: PCP Internal Medicine; Visit Provider Orthopaedic Surgery ==

== ENCOUNTER 2023-02-21 15:40 | Outpatient (AMB) | payer OTHER, SELFPAY ==
--- NOTE | 2023-02-21 15:43 | A.OFFPC_ITS ---
Vital Signs 02/21/23 15:44 Height 5 ft 6 in Weight 163 lb BMI 26.3 BP 118/68 Blood Pressure Location Lt brachial Position Sitting Pulse 78 Pulse Source Pulse Oximeter Temp Source Skin Pulse Oximetry (%) 99 Oxygen Delivery Method Room Air Intake Visit Reasons: fatigue & weakness for 6 months Intake Note: pt states fatigue and weakness X6 months Trust Evaluation Supervisor Required: No Allergies morphine [MORPHINE] Allergy (Intermediate, Verified 02/21/23 15:54) VOMITING amoxicillin [Amoxicillin] Allergy (Mild, Verified 02/21/23 15:54) HIVES sulfamethoxazole [From Bactrim] Allergy (Mild, Verified 02/21/23 15:54) HIVES trimethoprim [From Bactrim] Allergy (Mild, Verified 02/21/23 15:54) HIVES Medication List - Last Reconciled 02/21/23 by SILVIA Cole arm brace (Wrist Brace) As directed aspirin 81 mg PO DAILY calcium citrate-vitamin D3 250 mg-5 mcg (200 unit) 2 tabs PO BID cyclobenzaprine 10 mg PO BEDTIME docusate sodium (Colace) 100 mg PO .DAILY WITH FOOD 90 days fluticasone propionate 50 mcg/actuation (Flonase Allergy Relief) 1 spray intranasal DAILY inulin (Fiber Gummies) 2 grams PO BID metoprolol succinate ER 25 mg PO DAILY multivitamin 1 tab PO DAILY omeprazole 20 mg PO BID sodium fluoride-pot nitrate 1.1-5 % (PreviDent 5000 Enamel Protect) use as directed venlafaxine 75 mg PO DAILY vitamin B complex (B Complex-Vitamin B12 tablet) 1 tab PO DAILY Tobacco use date assessed: 02/21/23 Fall risk assessment: No Falls in past year Last assessed Fall Risk: 02/21/23 HPI fatigue & weakness for 6 months HPI Details Patient is a 63-year-old female presents today for an office visit due to fatigue and weakness for the past [address] Kitchen. Medical history significant for hypertension, anxiety, depression chronic pain syndrome, GERD, positive WENDY-followed by [facility], pancytopenia- followed by Dr. Lomax among others. Patient did have blood work 02/07/2023 which was stable including her hemoglobin and thyroid. Patient reports that she has hard time falling asleep and staying asleep, she reports sleeping every night about 4-5 hours and then she wakes up. She reports taking [id number] melatonin with no much improvement in sleep. She reports that she has hard time focusing during the day. She denies shortness of breath or chest pain. [facility] Medical History Anxiety and depression CAD (coronary artery disease) Chronic pain syndrome COVID-19 Essential (primary) hypertension Hx of allergic rhinitis Intestinal malabsorption following gastrectomy Spondylolisthesis Spondylosis of lumbar region without myelopathy or radiculopathy Surgical History History of bariatric surgery History of section History of cholecystectomy History of esophagogastroduodenoscopy (EGD) History of hysterectomy Hx of colonoscopy S/P laparoscopic sleeve gastrectomy Family History Father No problems noted. 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[employer] [place] Cognitive needs: No Hearing needs: No Vision needs: Yes (glasses) Questionnaire Thrive Questionnaire Date Thrive assessed: 08/22/22 AUDIT C Alcohol Use Questionnaire (AUDIT-C) 1. How often do you have a drink containing alcohol?: Monthly or less 2. How many drinks containing alcohol do you have on a typical day when you are drinking?: 1 or 2 3. How often do you have six or more drinks on one occasion?: Never Total Score: 1 Score Reviewed/Action Taken: No MIRIAM-7 AMB Questionnaire MIRIAM-7 Date MIRIAM - 7 assessed: 08/22/22 Source: Developed by Drs. Frederick Scott, Nettie Babin, Everton Glass and colleagues, with an educational ephraim from [employer]. Review of Systems Const Denies body aches, Denies chills, Reports fatigue, Denies fever(s) and Denies headache(s) Eyes Denies change in vision ENT Denies dizziness, Denies otalgia, Denies headache(s), Denies nasal discharge, Denies sinus pain and Denies sore throat Card Denies chest pain, Denies edema, Denies lightheadedness and Denies dyspnea Resp Denies cough and Denies dyspnea GI Denies abdominal pain Denies dysuria Musc Denies myalgias and Reports arthralgias Skin/Breast Denies rash Neuro Denies dizziness and Denies headache(s) Endo Reports fatigue Physical exam (Primary Care) Vital Signs: Last Vital Signs Pulse 78 02/21/23 15:44 BP 118/68 02/21/23 15:44 Pulse Ox 99 02/21/23 15:44 Oxygen Delivery Method Room Air 02/21/23 15:44 BMI result Body Mass Index 26.3 Tobacco/Smoking Status: Tobacco use Status Tobacco use date assessed 02/21/23 02/21/23 15:49 Patient Tobacco Use Status Never used Tobacco 02/21/23 15:49 e-Cigarette/Vaping Use Never Used 02/21/23 15:49 Thrive Assessment: Date of Thrive Assessment Date Thrive assessed 08/22/22 02/21/23 15:49 Const General: cooperative and no acute distress Orientation/consciousness: patient oriented x3 HENMT Head: Yes normocephalic and Yes atraumatic Mouth: oropharynx normal and moist mucous membranes Throat: Yes posterior oropharynx normal Eyes General: appearance normal, both eyes and all related structures Neck Neck: Yes normal visual inspection, Yes full ROM and Yes no lymphadenopathy Thyroid: Thyroid normal Resp Effort & Inspection: normal respiratory effort and able to speak in complete sentences Auscultation: clear to auscultation bilaterally, no crackles, no rales, no rhonchi and no wheezes Cardio Rate: regular rate Rhythm: regular rhythm Heart sounds: S1 normal heart sound present and S2 normal heart sound present GI Auscultation: normal bowel sounds Skin General skin exam: no rashes or lesions noted Neuro General: patient oriented x3 and CN's II-XI intact bilaterally Gait exam (Neuro): Normal gait present Extrem General: Yes full ROM and No edema Assessment and Plan Assessment & Plan (1) Insomnia: Code(s): G47.00 - Insomnia, unspecified Plan: Will provide patient with hydroxyzine 25 mg at bedtime p.r.n.-educated about drowsiness Follow-up with PCP in 3 months or sooner as needed (2) Fatigue: Code(s): R53.83 - Other fatigue Plan: Recent blood work from 02/07/2023 is stable including hemoglobin and thyroid. Will check vitamin B12 and vitamin-D. Patient agreed with the plan. Orders: Orders Vitamin B12 and Folate Today G47.00 - Insomnia, unspecified Vitamin D 25-OH Total Today G47.00 - Insomnia, unspecified Medications: New hydroxyzine HCl 25 mg PO BEDTIME PRN 20 tabs 0RF insomnia G47.00 - Insomnia, unspecified Coding Level of Care Code Est Pt Level 3 (14439) Diagnoses Insomnia G47.00 Fatigue R53.83
[2023-02-21 15:44] VITALS: BP 118/68; PULSE 78; O2SAT 99; BMI 26.3
== END 2023-02-21 16:11 | disposition home or self-care (01) ==
PROVIDERS: PCP Internal Medicine; Visit Provider Nurse Practitioner Family
DX: G47.00 Insomnia, unspecified (principal); R53.83 Other fatigue
CPT/HCPCS: 99213

== ENCOUNTER 2023-02-21 16:21 | Outpatient (REF) | payer OTHER, SELFPAY ==
[2023-02-21 18:41] LABS: Vitamin D 25-OH Total 39.7 ng/mL (>30)
[2023-02-21 18:51] LABS: Folate > 20.0 ng/mL (> or = 4.0); Vitamin B12 > 2000 pg/mL (200-900)
== END 2023-02-21 16:22 | disposition home or self-care (01) ==
LOC: HO.LAB 16:21
PROVIDERS: PCP Internal Medicine; Visit Provider Nurse Practitioner Family
DX: G47.00 Insomnia, unspecified (principal); M54.2 Cervicalgia; K21.9 Gastro-esophageal reflux disease without esophagitis
CPT/HCPCS: 36415; 82306; 82607; 82746

== ENCOUNTER 2023-04-17 06:17 | Day surgery (SDC) | payer OTHER, SELFPAY ==
[2023-04-15 11:33] VITALS: BMI 25.5
--- NOTE | 2023-04-16 11:58 | HO.ANESPROP2 ---
Documented by User: Rosenda Cee NP 04/16/23 12:02 HPI - Anesthesia Eval Consult details Narrative: 63yo F for Left Carpal Tunnel Release, Left ring finger Trigger Release, Left Excision hand Mass PMFSH Active Problems Active Problems: All Active Problems (Updated 03/28/23 @ 15:15 by Bekah Lomax MD) Pancytopenia (Chronic) GERD (gastroesophageal reflux disease) (Acute) Family history of colon cancer (Acute) Chronic idiopathic constipation (Acute) COVID-19 virus infection (Acute) Positive WENDY (antinuclear antibody) (Acute) Bilateral hand numbness (Acute) Osteoarthritis of left knee (Acute) Trigger finger, left ring finger (Acute) Neck pain (Acute) Carpal tunnel syndrome of left wrist (Acute) Numbness of right hand (Acute) Mass of finger of left hand (Acute) Insomnia (Acute) Chronic pain syndrome (Acute) Spondylosis of lumbar region without myelopathy or radiculopathy (Acute) Anxiety and depression (Acute) Intestinal malabsorption following gastrectomy (Acute) S/P laparoscopic sleeve gastrectomy (Acute) Essential (primary) hypertension (Acute) Past Medical History Medical History COVID-19 Hx of allergic rhinitis Chronic pain syndrome Spondylosis of lumbar region without myelopathy or radiculopathy Spondylolisthesis Anxiety and depression Intestinal malabsorption following gastrectomy CAD (coronary artery disease) Essential (primary) hypertension Family History Family History Father No problems noted. Mother Lung cancer Brother Colon cancer Family/Other Intestinal cancer Maternal Grandmother Breast cancer Family history of problems with anesthesia: No Surgical History Surgical History H/O arthroscopy of left knee History of esophagogastroduodenoscopy (EGD) Hx of colonoscopy S/P laparoscopic sleeve gastrectomy History of cholecystectomy History of bariatric surgery History of hysterectomy History of section Social History Social History Household Members: Family Housing: Apartment Are you a primary acute care nursing assistant to a significant other at home: No Do you presently have visiting nurse or other home services: No Alcohol intake: current Alcohol intake frequency: holidays/special occasions only Patient Tobacco Use Status: Never used Tobacco e-Cigarette/Vaping Use: Never Used Second Hand Smoke Exposure: Yes Use of substances other than those prescribed or required for medical reasons: No Have you been hit, kicked, punched, or otherwise hurt by someone within the past year? 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 needs: No Hearing needs: No Vision needs: Yes (glasses) Meds Allergies Allergy/AdvReac Type Severity Reaction Status Date / Time morphine [MORPHINE] Allergy Intermediate VOMITING Verified 04/17/23 06:47 amoxicillin [Amoxicillin] Allergy Mild HIVES Verified 04/17/23 06:47 latex Allergy Mild Rash Verified 04/17/23 06:47 sulfamethoxazole Allergy Mild HIVES Verified 04/17/23 06:47 [From Bactrim] trimethoprim [From Bactrim] Allergy Mild HIVES Verified 04/17/23 06:47 Home Medications Medication Instructions Recorded Confirmed Last Taken Type venlafaxine 75 mg tablet 75 mg PO DAILY 05/30/20 04/15/23 04/17/23 History multivitamin 1 tab PO DAILY 06/30/20 03/28/23 Unknown History aspirin 81 mg tablet,delayed 81 mg PO DAILY 12/15/20 04/15/23 04/15/23 06:00 History release 81 mg sodium fluoride 1.1 %-potassium See Rx Instructions .Route .COMPLEX 03/02/21 04/15/23 Unknown History nitrate 5 % dental paste (PreviDent 5000 Enamel Protect) vitamin B complex (B 1 tab PO DAILY 10/14/22 03/28/23 Unknown History Complex-Vitamin B12 tablet) magnesium 04/15/23 04/15/23 Unknown History zinc 04/15/23 Unknown History Exam Exam Date and Time: April 16, 2023 1158 Height,Weight and Vital Signs: Height 5 ft 6 in Weight 71.668 kg Pertinent Lab Results Pertinent Lab Results: Laboratory Tests 02/07/23 02/07/23 10:28 10:28 WBC 3.5 L Hgb 12.9 Hct 39.6 Plt Count 127 L Sodium 143 Potassium 3.7 Chloride 107 Carbon Dioxide 27 BUN 8 L Creatinine 0.75 Narrative Narrative: ECHO 03/2022 Conclusions: - The left ventricular systolic function is normal.? The ? calculated ejection fraction is 71% by biplane method. ? - No obvious valvular pathology seen on this study.? Assessment and Plan Assessment Anesthesia Assessment: Chart Reviewed Final Anesthetic Review Family History of Problems with Anesthesia: No Documented by User: Fatoumata Cruz MD 04/17/23 08:16 PMFSH Past Medical History Medical History COVID-19 Hx of allergic rhinitis Chronic pain syndrome Spondylosis of lumbar region without myelopathy or radiculopathy Spondylolisthesis Anxiety and depression Intestinal malabsorption following gastrectomy CAD (coronary artery disease) Essential (primary) hypertension Family History Family History Father No problems noted. Mother Lung cancer Brother Colon cancer Family/Other Intestinal cancer Maternal Grandmother Breast cancer Surgical History Surgical History H/O arthroscopy of left knee History of esophagogastroduodenoscopy (EGD) Hx of colonoscopy S/P laparoscopic sleeve gastrectomy History of cholecystectomy History of bariatric surgery History of hysterectomy History of section History of Problems with Anesthesia: No Social History Social History Household Members: Family Housing: Apartment Are you a primary acute care nursing assistant to a significant other at home: No Do you presently have visiting nurse or other home services: No Alcohol intake: current Alcohol intake frequency: holidays/special occasions only Patient Tobacco Use Status: Never used Tobacco e-Cigarette/Vaping Use: Never Used Second Hand Smoke Exposure: Yes Use of substances other than those prescribed or required for medical reasons: No Have you been hit, kicked, punched, or otherwise hurt by someone within the past year? 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 needs: No Hearing needs: No Vision needs: Yes (glasses) Meds Allergies Allergy/AdvReac Type Severity Reaction Status Date / Time morphine [MORPHINE] Allergy Intermediate VOMITING Verified 04/17/23 06:47 amoxicillin [Amoxicillin] Allergy Mild HIVES Verified 04/17/23 06:47 latex Allergy Mild Rash Verified 04/17/23 06:47 sulfamethoxazole Allergy Mild HIVES Verified 04/17/23 06:47 [From Bactrim] trimethoprim [From Bactrim] Allergy Mild HIVES Verified 04/17/23 06:47 Home Medications Medication Instructions Recorded Confirmed Last Taken Type venlafaxine 75 mg tablet 75 mg PO DAILY 05/30/20 04/15/23 04/17/23 History multivitamin 1 tab PO DAILY 06/30/20 03/28/23 Unknown History aspirin 81 mg tablet,delayed 81 mg PO DAILY 12/15/20 04/15/23 04/15/23 06:00 History release 81 mg sodium fluoride 1.1 %-potassium See Rx Instructions .Route .COMPLEX 03/02/21 04/15/23 Unknown History nitrate 5 % dental paste (PreviDent 5000 Enamel Protect) vitamin B complex (B 1 tab PO DAILY 10/14/22 03/28/23 Unknown History Complex-Vitamin B12 tablet) magnesium 04/15/23 04/15/23 Unknown History zinc 04/15/23 Unknown History Exam Airway Heart: rrr Lungs: cta Assessment and Plan Assessment Anesthesia Assessment: Anesthesia Plan Discussed Final Anesthetic Review History of Problems with Anesthesia: No NPO: Yes ASA Class: II Final Preanesthetic Review: No Changes in Pt Med Stat, Meds/Allgs Chart Reviewed, Consent Obtained/Reviewed and Anes Risks/Benef Reviewed Patient Risk: Low Procedure Risk: Low Anesthetic Plan Anesthetic Plan: GA (extreme anxiety) Disposition: Standard PACU
[2023-04-17] VITALS (8 sets, daily range): BP systolic 109–130; BP diastolic 60–83; PULSE 83–89; RESP 16–18; TEMP 36.2–36.6; O2SAT 98–100
[2023-04-17] MEDS: Lactated Ringers 1,000 ML 100 ML IVCONT (06:51)
--- NOTE | 2023-04-17 09:07 | P.OP_ITS ---
Operative Note Operative Note Date of Service: 04/17/23 Narrative: Operative Note Narrative: Preop diagnosis: 1. Left carpal tunnel syndrome 2. Left ring finger trigger finger 3. Left hand mass Postop diagnosis: Same Procedure: 1. Left carpal tunnel release 2. Left ring finger A1 andi release 3. Left hand soft tissue mass excision Surgeon: Ericka Montaño MD Anesthesia: General Anesthesia Findings: a 9 mm diameter cystic mass was found attached to the volar aspect of the left ring finger A1 andi. This is most consistent with a large retinacular cyst. thickening of the transverse carpal ligament and thickening of the ring finger A1 andi were observed. No locking and catching with passive ring finger range of motion after A1 andi release. Implants: None Tourniquet time: 13 minutes EBL: 5.0 ml Specimen: left hand mass sent for histopathology Drains: None Complications: None Disposition: Brought to the recovery room in stable condition Plan: Follow-up in 10-14 days for wound check, suture removal and to check pathology Indications: The patient is a [age] year old woman with left carpal tunnel syndrome, left ring finger trigger finger, and a mass in the left hand. . The risks and benefits of operative treatment, including but not limited to risk of damage to blood vessels, nerves, tendons, infection, recurrence, persistent pain or numbness, incomplete resolution of preoperative symptoms, or need for further surgery were discussed with the patient and they wished to proceed with surgery. Procedure: Once consent was obtained patient was brought back to the operating suite and placed in the operating table in a supine position. . Perioperative antibiotics and anesthesia was administered by the anesthesia team. A tourniquet was applied to the proximal aspect of the Left upper extremity and the limb was prepped and draped in a standard surgical fashion. The limb was elevated exsanguinated with Esmarch bandage and the tourniquet inflated to 250 mm of mercury for a total tourniquet time of 13 minutes. Once assured that we had a good block, a 2.0 cm longitudinal incision was made centered over the left carpal tunnel. The incision was made through the skin to the subcutaneous tissues using a #15 blade. Dissection was made down to the level of the transverse carpal ligament with care being taken to protect the palmar cutaneous nerve. Once the transverse carpal ligament was clearly visualized, a longitudinal incision was made in the transverse carpal ligament 1st using a #15 blade, then using tenotomy scissors under direct visualization. Care was taken to look for and protect the motor branch of the median nerve when seen in this area. Once satisfied with our carpal tunnel release the wound was irrigated with normal saline. Once assured that we had a good block, a 1.5 cm oblique incision was made centered over the A1 andi of the left ring finger . The incision was made through the skin to the subcutaneous tissues using a #15 blade. Careful diss ection was made down to the level of the A1 andi using tenotomy scissors, with care being taken to protect the nearby neurovascular structures. a cystic mass measuring approximately 9 mm in diameter was appreciated attached to the A1 andi of the left ring finger. I carefully dissected all the soft tissue off of the mass and then carefully detached the mass from the A1 andi and placed on the back table to be sent for histopathologic review I then turned my attention to the A1 andi release. The A1 andi of the left ring finger was noted to be significantly thickened. .A longitudinal incision was made in the A1 andi 1st using a #15 blade, then using tenotomy scissors under direct visualization. The A1 andi was noted to be thickened. Following our A1 andi release, we no longer saw any locking or catching of the digit with passiveflexion and extension. At this point the tourniquet was deflated and hemostasis obtained with a brief period of local pressure . The wounds werecopiously irrigated with normal saline. The s skin edges were reapproximated with 5-0 nylon suture. The wounds wereinfiltrated with some 1% lidocaine with epinephrine for postop pain c ontrol and a sterile dressing was applied. The patient appears to have tolerated the procedure well and with no complications. All digits were well vascularized conclusion of the case.
--- NOTE | 2023-04-17 09:07 | MHC.SHP ---
Pre-Procedural Eval Section A Date of Service: 04/17/23 The patient is an INPATIENT: No Changes since office visit: No Cold of Flu in the past 2 weeks, No New Medical Problems, No Changes in Medication and No Patient answered all questions The History & Physical has been completed within 30 days and I have reviewed it.: Yes Section B Chief Complaint: Carpal tunnel syndrome, left upper limb, trigger Allergies: Allergies Allergy/AdvReac Type Severity Reaction Status Date / Time morphine [MORPHINE] Allergy Intermediate VOMITING Verified 04/17/23 06:47 amoxicillin [Amoxicillin] Allergy Mild HIVES Verified 04/17/23 06:47 latex Allergy Mild Rash Verified 04/17/23 06:47 sulfamethoxazole Allergy Mild HIVES Verified 04/17/23 06:47 [From Bactrim] trimethoprim [From Bactrim] Allergy Mild HIVES Verified 04/17/23 06:47 Plan I have reviewed the history and physical and performed a pertinent physical examination on my patient. No changes have occurred unless specified. Time Spent With Patient Time: Total time managing care of this patient today ____ minutes.
== END 2023-04-17 11:29 | disposition home or self-care (01) ==
PROVIDERS: PCP Internal Medicine; Visit Provider Orthopaedic Surgery
PROC: (CPT 64721; principal; 2023-04-17 07:30)
PROC: (CPT 26055; 2023-04-17 07:30)
PROC: (CPT 64721; 2023-04-17 07:30)
DX: G56.02 Carpal tunnel syndrome, left upper limb (principal); M65.342 Trigger finger, left ring finger; M67.442 Ganglion, left hand; G89.4 Chronic pain syndrome; R20.0 Anesthesia of skin; R76.0 Raised antibody titer; I25.10 Atherosclerotic heart disease of native coronary artery without angina pectoris; I10 Essential (primary) hypertension; F41.8 Other specified anxiety disorders; Z79.82 Long term (current) use of aspirin; Z79.899 Other long term (current) drug therapy; Z88.1 Allergy status to other antibiotic agents; Z88.2 Allergy status to sulfonamides; Z88.5 Allergy status to narcotic agent; Z91.040 Latex allergy status; Z98.84 Bariatric surgery status; Z86.16 Personal history of COVID-19
CPT/HCPCS: 64721; 26160; 26055; 88304; 88305; J0330; J0690; J1100; J2250; J2405; J2795; J3010

== ENCOUNTER → 2023-04-17 06:17 | Outpatient (BNV) | payer OTHER, SELFPAY | PROVIDERS: PCP Internal Medicine; Visit Provider Orthopaedic Surgery | DX: G56.02 Carpal tunnel syndrome, left upper limb (principal); G56.22 Lesion of ulnar nerve, left upper limb; M67.442 Ganglion, left hand; R22.32 Localized swelling, mass and lump, left upper limb | CPT/HCPCS: 26055; 26115; 64721 ==

== ENCOUNTER → 2023-04-19 09:00 | Outpatient (BNV) | payer OTHER, SELFPAY | PROVIDERS: Absent Provider Internal Medicine; PCP Internal Medicine; Visit Provider Radiology Diagnostic Radiology | DX: Z12.31 Encounter for screening mammogram for malignant neoplasm of breast (principal) | CPT/HCPCS: 77063; 77067 ==

== ENCOUNTER 2023-04-19 09:09 | Outpatient (REF) | payer OTHER, SELFPAY ==
--- NOTE | ~2023-04-19 | MM_ITS ---
EXAMINATION: MM SCREENING DIGITAL BREAST TOMOSYNTHESIS, BILATERAL CLINICAL INFORMATION: Screening. Asymptomatic. The patient reports losing large amount of weight since the last mammogram from 2019. COMPARISON: Mammography: This study is compared with prior exams dating back to 2017. TECHNIQUE: Digital breast tomosynthesis is performed in both the craniocaudal and mediolateral oblique views along with computer-aided detection (CAD). Synthesized 2D images are generated from the tomosynthesis. FINDINGS: There are scattered areas of fibroglandular density (ACR BI-RADS breast composition Category b). There are no significant masses, abnormal calcifications, or other abnormalities. MM/MM tomosynthesis screening BI IMPRESSION: No mammographic evidence of malignancy. ASSESSMENT: BI-RADS BI-RADS 1 - Negative RECOMMENDATION: Routine annual mammography screening. 1 year F/U This examination should not preclude the clinical evaluation of a suspicious palpable abnormality. This patient's information was entered into a reminder system with a target due date for their next mammogram.
== END 2023-04-19 09:10 | disposition home or self-care (01) ==
LOC: HO.MAMMO 09:09
PROVIDERS: Absent Provider Internal Medicine; PCP Internal Medicine; Visit Provider Internal Medicine
DX: Z12.31 Encounter for screening mammogram for malignant neoplasm of breast (principal)
CPT/HCPCS: 77063; 77067

== ENCOUNTER 2023-04-30 11:59 | Outpatient (AMB) | payer OTHER, SELFPAY ==
--- NOTE | 2023-04-30 12:01 | A.OFFVIS_ITS ---
Intake Intake Visit Reasons: PO LT CTR, RF Trigger, hand mass exc. 04/17/23AR Intake Note: Lynn is a 63 year old female who presents today for a post op appointment s/p left CTR, RF trigger, hand mass exc. 04/17/23 AR. Patient reports her symptoms has improved after the surgery. Allergies morphine [MORPHINE] Allergy (Intermediate, Verified 04/30/23 12:15) VOMITING amoxicillin [Amoxicillin] Allergy (Mild, Verified 04/30/23 12:15) HIVES latex Allergy (Mild, Verified 04/30/23 12:15) Rash sulfamethoxazole [From Bactrim] Allergy (Mild, Verified 04/30/23 12:15) HIVES trimethoprim [From Bactrim] Allergy (Mild, Verified 04/30/23 12:15) HIVES HPI PO LT CTR, RF Trigger, hand mass exc. 04/17/23AR HPI Details Lynn is a 63 year old right hand dominant woman, who works here in the [place], presenting S/P left carpal tunnel release, ring finger trigger release, and mass excision, DOS: 04/17/23. She says she is doing very well and is happy with the results of her surgery. She denies any locking or catching of her finger and says her sensation is now normal. She no longer has nighttime numbness and tingling. In regards to her right hand she says her hand is fine and she has no complaints about this today. [facility] Medical History COVID-19 Hx of allergic rhinitis Chronic pain syndrome Spondylosis of lumbar region without myelopathy or radiculopathy Spondylolisthesis Anxiety and depression Intestinal malabsorption following gastrectomy CAD (coronary artery disease) Essential (primary) hypertension Surgical History H/O arthroscopy of left knee History of esophagogastroduodenoscopy (EGD) Hx of colonoscopy S/P laparoscopic sleeve gastrectomy History of cholecystectomy History of bariatric surgery History of hysterectomy History of section Family History Father No problems noted. Mother Lung cancer Brother Colon cancer Family/Other Intestinal cancer Maternal Grandmother Breast cancer Social History Household Members: Family Housing: Apartment Are you a primary manager medicare marketing to a significant other at home: No Do you presently have visiting nurse or other home services: No Alcohol intake: current Alcohol intake frequency: holidays/special occasions only Patient Tobacco Use Status: Never used Tobacco e-Cigarette/Vaping Use: Never Used Second Hand Smoke Exposure: Yes Advance Directives Date on File: 10/14/17 service: No Current occupational status: employed Current occupation: [place] [employer] [place] Cognitive needs: No Hearing needs: No Vision needs: Yes (glasses) Review of Systems Const All systems reviewed & are unremarkable except as noted in HPI and below Physical Exam Const General: no acute distress and alert Orientation/consciousness: patient oriented x3 Neuro General: patient oriented x3 Extrem Other: The patient was alert oriented and in no acute distress The incisions are healing well with no erythema drainage or evidence of infection. Sutures removed and Steri-Strips applied She can make a fist and extend all her digits No locking or catching Sensation is intact to all digits Cap refill is brisk Pathology report 04/17/23 Diagnosis Soft tissue, left hand, mass, excision: Fibrovascular tissue with myxoid and cystic degeneration, consistent with ganglion cyst Psych Appearance: grossly normal Affect: normal affect Attitude: cooperative Assessment & Plan Assessment & Plan (1) Trigger finger, left ring finger: Code(s): M65.342 - Trigger finger, left ring finger (2) Carpal tunnel syndrome of left wrist: Code(s): G56.02 - Carpal tunnel syndrome, left upper limb (3) Numbness of right hand: Code(s): R20.0 - Anesthesia of skin (4) Mass of finger of left hand: Code(s): R22.32 - Localized swelling, mass and lump, left upper limb Plan Assessment & Plan: 1. Left ring finger trigger finger, S/P release DOS: 04/17/23 2. Left hand ganglion cyst, adjacent to ring finger flexor tendon sheath at the mid palmar crease S/P excision, DOS: 04/17/23 3. Left carpal tunnel syndrome, S/P release DOS: 04/17/23 Pre-operative symptoms intermittent, but daily, worse at night Now with normal sensation The patient appears to be doing well post-operatively I educated her about the post-operative course I discussed activity modifications, she is to lift nothing heavier than a cellphone for the next two weeks She will perform gentle ROM exercises at home She should avoid any underwater activities for the next 5 days She should gently massage about the incision site to reduce the risk of hypersensitivity She was given a note for work to remain out of work until 05/19/23 at which time she can return back to work without restrictions. She can follow up prn 4. Right hand numbness In the median nerve distribution Symptoms intermittent and occasional She says this is not really bothering her at this time Her NCS was performed only on the left side Scribed for Ericka Montaño MD by Tru Tello, medical associate, on 04/30/23 at 12:05 PM, EST. Coding Level of Care Code Global (66139) Diagnoses Trigger finger, left ring finger M65.342 Carpal tunnel syndrome of left wrist G56.02 Numbness of right hand R20.0 Mass of finger of left hand R22.32
== END 2023-04-30 12:21 | disposition home or self-care (01) ==
PROVIDERS: PCP Internal Medicine; Visit Provider Orthopaedic Surgery
DX: M65.342 Trigger finger, left ring finger (principal); G56.02 Carpal tunnel syndrome, left upper limb; R20.0 Anesthesia of skin; R22.32 Localized swelling, mass and lump, left upper limb
CPT/HCPCS: 99024

== ENCOUNTER → 2023-04-30 11:59 | Outpatient (BNVA) | payer OTHER, SELFPAY | PROVIDERS: PCP Internal Medicine; Visit Provider Orthopaedic Surgery ==

== ENCOUNTER 2023-06-09 15:09 | Outpatient (AMB) | payer OTHER, SELFPAY ==
--- NOTE | 2023-06-09 15:16 | MHC.OFFVIS ---
Intake Vital Signs 06/09/23 15:17 Height 5 ft 6 in Weight 163 lb BMI 26.3 BP 112/60 Blood Pressure Location Rt brachial Position Sitting Pulse 62 Pulse Source Pulse Oximeter Temp 97.7 F Temp Source Skin Pulse Oximetry (%) 98 Oxygen Delivery Method Room Air Intake Visit Reasons: possible cortisone injection Intake Note: Patient presents today for possible cortisone injection on left knee. Investment Accounting Clerk Required: No Accompanied by: Self / Same As Patient Allergies morphine [MORPHINE] Allergy (Intermediate, Verified 06/09/23 15:16) VOMITING amoxicillin [Amoxicillin] Allergy (Mild, Verified 06/09/23 15:16) HIVES latex Allergy (Mild, Verified 06/09/23 15:16) Rash sulfamethoxazole [From Bactrim] Allergy (Mild, Verified 06/09/23 15:16) HIVES trimethoprim [From Bactrim] Allergy (Mild, Verified 06/09/23 15:16) HIVES Medication List - Last Reconciled 06/09/23 by Dev Bland MD arm brace (Wrist Brace) As directed aspirin 81 mg PO DAILY calcium citrate-vitamin D3 250 mg-5 mcg (200 unit) 2 tabs PO BID cyclobenzaprine 10 mg PO BEDTIME docusate sodium (Colace) 100 mg PO .DAILY WITH FOOD 90 days fluticasone propionate 50 mcg/actuation (Flonase Allergy Relief) 1 spray intranasal DAILY hydroxyzine HCl 25 mg PO BEDTIME PRN inulin (Fiber Gummies) 2 grams PO BID [magnesium ] metoprolol succinate ER 25 mg PO DAILY multivitamin 1 tab PO DAILY omeprazole 20 mg PO BID sodium fluoride-pot nitrate 1.1-5 % (PreviDent 5000 Enamel Protect) use as directed venlafaxine ER 75 mg PO DAILY vitamin B complex (B Complex-Vitamin B12 tablet) 1 tab PO DAILY [zinc ] HPI HPI Comments History of Present Illness Details The patient returns for evaluation of her positive WENDY. I had seen her back in the spring. She was having some left knee pain. There was a prior history of arthroscopic surgery on the knees. Radiographs had shown osteoarthritis. She really does not recall the knee pain at the time and says she does not have much pain right now. There is occasional discomfort in her hands and lower back region. She has had some corticosteroid injections in the back that were helpful. She recently had some carpal tunnel surgery on the left hand. [facility] Medical History (Updated 06/08/23 @ 14:15 by Dev Bland MD) COVID-19 Hx of allergic rhinitis Chronic pain syndrome Spondylosis of lumbar region without myelopathy or radiculopathy Spondylolisthesis Anxiety and depression Intestinal malabsorption following gastrectomy CAD (coronary artery disease) Essential (primary) hypertension Surgical History (Updated 06/09/23 @ 15:26 by LJ Rose) H/O arthroscopy of left knee History of esophagogastroduodenoscopy (EGD) Hx of colonoscopy S/P laparoscopic sleeve gastrectomy History of cholecystectomy History of bariatric surgery History of hysterectomy History of section Family History Father No problems noted. Mother Lung cancer Brother Colon cancer Family/Other Intestinal cancer Maternal Grandmother Breast cancer Social History Household Members: Family Housing: Apartment Are you a primary medical care evaluation specialist to a significant other at home: No Do you presently have visiting nurse or other home services: No Alcohol intake: current Alcohol intake frequency: holidays/special occasions only Patient Tobacco Use Status: Never used Tobacco e-Cigarette/Vaping Use: Never Used Second Hand Smoke Exposure: Yes Advance Directives Date on File: 10/14/17 service: No Current occupational status: employed 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 Card Details: Negative chest pain, edema and syncope Resp Details: Negative for SOB, cough and wheezing GI Details: Negative indigestion/heartburn, nausea, abdominal pain, bowel changes, diarrhea, constipation and bloody stool. Skin/Breast Details: Negative for itching, rash, hives, Raynaud's symptoms, sun sensitivity, and skin cancer Neuro Details: Negative for epilepsy, palsy, stroke, changes in speech, tingling and weakness Piotr/Lymph Details: Negative for excessive bruising or bleeding. Physical Exam Vital Signs: Last Vital Signs Temp 97.7 F 06/09/23 15:17 Pulse 62 06/09/23 15:17 BP 112/60 06/09/23 15:17 Pulse Ox 98 06/09/23 15:17 Oxygen Delivery Method Room Air 06/09/23 15:17 BMI result Body Mass Index 26.3 APPEARANCE: Patient in no acute distress EYES no redness, pupils equal and reactive to light, eyelids normal EARS: External ear normal, canal clear and tympanic membrane normal. I do not detect the any significant gross hearing loss. NOSE/SINUS: Airflow through both nares, no nasal discharge, no bleeding THROAT: Oral mucosa moist, no ulcerations NECK: No thyromegaly or masses, no adenopathy, trachea midline. HEART: Regulrar rhythm, S1-S2 heard, no murmurs, rubs or gallops. LUNG: Clear to percussion and auscultation ABD: Normal bowel sounds, no organomegaly, masses or tenderness. EXTREMITIES: No edema, no calf tenderness. She has compression stockings in place. There is no calf or pretibial tenderness. She has normal peripheral pulses. NEURO: Oriented and alert x3. No focal weakness. Reflexes symmetric. Gait normal. SKIN: No inflammatory or neoplastic lesions. Normal color and turgor JOINT EXAM:.?? Cervical Spine:.? Full range of motion without pain; no tenderness. Thoracic Spine:.? No scoliosis.? No tenderness on palpation. Lumbar Spine:.? Alignment normal.? Full range of motion without pain, no tenderness. Chest Wall:.? No tenderness, swelling, increased warmth or erythema. Hands:. Right:? Normal pain-free range of motion without tenderness, swelling, increased warmth or erythema. Able to make a full fist and has a good adobe architect strength. No flexor tendon triggering, thenar atrophy or sensory loss. Left: There is pain-free motion of the fingers without tenderness or swelling. Wrists:.? Left: Healing carpal tunnel surgery site on the volar aspect of the last. Minimal tenderness, no swelling or redness. Right: Normal pain-free range of motion without tenderness, swelling, increased warmth or erythema. Negative Phalen's and Tinel signs. Elbows:. Normal pain-free range of motion without tenderness, swelling, increased warmth or erythema. Shoulders:.?? Full range of motion without pain. No tenderness, weakness, swelling, increased warmth or erythema. Hips:.? Full range of motion without pain. Hip bursa:.? No tenderness. Knees:.??Left: Moderate patellofemoral crepitus; no pain with extremes of motion. No tenderness, effusion, redness or warmth. Right joint Normal pain-free range of motion with mild patellofemoral crepitus but no effusion, tenderness, swelling, increased warmth or erythema.? Ankles:.? Normal pain-free range of motion without tenderness, swelling, increased warmth or erythema. Feet:.? Right: Mild hallux valgus deformity with some bony enlargement but no tenderness. Elsewhere in the foot no tenderness or swelling. Left: Normal pain-free range of motion without tenderness, swelling, increased warmth or erythema. Tender points: Mild tenderness to digital palpation at the left lateral epicondyle, both knees, both greater trochanter bilaterally. ? Results Reviewed Results Reviewed: [address] [address] XRay Report Signed Patient: Lynn Biggs MR#: [id number] : 1960 Acct:[id number] Age/Sex: 62 / F ADM Date: 10/14/[address]: Dev Bland MD Ordering Physician: Dev Bland MD Date of Service: 10/14/22 Procedure(s): XR knee LT 3V Accession Number(s): [id number] cc: Dev Bland MD~ EXAMINATION: XR KNEE, LEFT CLINICAL INFORMATION: Pain. COMPARISON: Radiographs dated 05/12/2015. TECHNIQUE: AP, lateral and sunrise views of the left knee. FINDINGS: Bony mineralization is normal. There is moderate asymmetric narrowing of the medial joint space compartment, with peripheral osteophyte formation. The lateral joint space compartment is well-maintained and shows minimal peripheral osteophyte formation. There is mild narrowing of the patellofemoral compartment, with peripheral osteophyte formation. No fracture, dislocation or significant joint effusion is seen. There is no foreign body. XR/XR knee LT 3V IMPRESSION: There is tricompartment osteoarthritic change of the left knee, most pronounced of the medial joint space compartment, where it is moderate. Dictated By: Saroj Momin MD Signed By: <Electronically signed by Saroj Momin MD in OV> Laboratory Tests 02/07/23 10:28 WBC 3.5 L Hgb 12.9 Plt Count 127 L ESR 10 Laboratory Tests 05/15/19 10/14/22 21:11 16:10 Urine Protein NEG U Random Total Protein < 7 Sm (Peng) Antibody <1.0 NEG SM/MANAGEMENT ENGINEER IgG Antibody <1.0 NEG Double Strand DNA Ab 2 Laboratory Tests 02/07/23 10:28 Creatinine 0.75 TSH 1.57 Assessment & Plan Assessment & Plan (1) Osteoarthritis of left knee: Code(s): M17.12 - Unilateral primary osteoarthritis, left knee (2) Positive WENDY (antinuclear antibody): Comment: 08/2022 1:320 Code(s): R76.8 - Other specified abnormal immunological findings in serum Plan The patient has a positive WENDY, mild leukopenia, and mild thrombocytopenia. These findings seem to be chronic and have not been associated with any other symptoms to suggest active lupus or any other autoimmune disorder. She does have osteoarthritis in the left knee. This of course from time to time may cause her pain and swelling. Weight control and quadriceps exercises are recommended. She does take acetaminophen if needed as well. At this point I do not think she needs rheumatology follow-up unless she gets signs of an active inflammatory arthropathy. Coding Level of Care Code Est Pt Level 3 (70352) Diagnoses Osteoarthritis of left knee M17.12 Positive WENDY (antinuclear antibody) R76.8
[2023-06-09 15:17] VITALS: BP 112/60; PULSE 62; TEMP 36.5; O2SAT 98; BMI 26.3
== END 2023-06-09 16:03 | disposition home or self-care (01) ==
PROVIDERS: PCP Internal Medicine; Visit Provider Internal Medicine Rheumatology
DX: M17.12 Unilateral primary osteoarthritis, left knee (principal); R76.8 Other specified abnormal immunological findings in serum
CPT/HCPCS: 99213

== ENCOUNTER → 2023-06-09 15:09 | Outpatient (BNVA) | payer OTHER, SELFPAY | PROVIDERS: PCP Internal Medicine; Visit Provider Internal Medicine Rheumatology ==

== ENCOUNTER 2023-06-12 12:58 | Outpatient (AMB) | payer OTHER, SELFPAY ==
--- NOTE | 2023-06-12 12:54 | A.OFFPC_ITS ---
Vital Signs 06/12/23 12:55 Height 5 ft 6 in Weight 161 lb BMI 26.0 Intake Visit Reasons: 3mth f/u Intake Note: Patient is here to follow up on [symptoms]. 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 Public Relations Assistant: Not Required per policy Accompanied by: Self / Same As Patient Allergies morphine [MORPHINE] Allergy (Intermediate, Verified 06/13/23 06:45) VOMITING amoxicillin [Amoxicillin] Allergy (Mild, Verified 06/13/23 06:45) HIVES latex Allergy (Mild, Verified 06/13/23 06:45) Rash sulfamethoxazole [From Bactrim] Allergy (Mild, Verified 06/13/23 06:45) HIVES trimethoprim [From Bactrim] Allergy (Mild, Verified 06/13/23 06:45) HIVES Medication List - Last Reconciled 06/13/23 by Elliot Kitchen MD arm brace (Wrist Brace) As directed aspirin 81 mg PO DAILY calcium citrate-vitamin D3 250 mg-5 mcg (200 unit) 2 tabs PO BID cyclobenzaprine 10 mg PO BEDTIME docusate sodium (Colace) 100 mg PO .DAILY WITH FOOD 90 days fluticasone propionate 50 mcg/actuation (Flonase Allergy Relief) 1 spray intranasal DAILY hydroxyzine HCl 25 mg PO BEDTIME PRN inulin (Fiber Gummies) 2 grams PO BID [magnesium ] metoprolol succinate ER 25 mg PO DAILY multivitamin 1 tab PO DAILY omeprazole 20 mg PO BID sodium fluoride-pot nitrate 1.1-5 % (PreviDent 5000 Enamel Protect) use as directed venlafaxine ER 75 mg PO DAILY vitamin B complex (B Complex-Vitamin B12 tablet) 1 tab PO DAILY [zinc ] Tobacco use date assessed: 02/21/23 Fall risk assessment: No Falls in past year Last assessed Fall Risk: 06/12/23 Dental Screening Dental Screen Date: 06/12/23 Did you have a dental visit in the last 12 months?: Yes Did you have a dental problem in the last 6 months where you did not have access to dental care?: No Was dental information given to patient?: Patient has dentist HPI 3mth f/u HPI Details 63-year old female wishes to discuss her medical health via tele health. 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 Compliant with all medications and able to function and do all activities of daily living. The neck pain symptoms she had in the last office visit have all resolved. Has received her flu vaccination. FORMERLY [facility] Medical History COVID-19 Hx of allergic rhinitis Chronic pain syndrome Spondylosis of lumbar region without myelopathy or radiculopathy Spondylolisthesis Anxiety and depression Intestinal malabsorption following gastrectomy CAD (coronary artery disease) Essential (primary) hypertension Surgical History H/O arthroscopy of left knee History of esophagogastroduodenoscopy (EGD) Hx of colonoscopy S/P laparoscopic sleeve gastrectomy History of cholecystectomy History of bariatric surgery History of hysterectomy History of section Family History Father No problems noted. Mother Lung cancer Brother Colon cancer Family/Other Intestinal cancer Maternal Grandmother Breast cancer Social History Household Members: Family Housing: Apartment Are you a primary memory care program director to a significant other at home: No Do you presently have visiting nurse or other home services: No Alcohol intake: current Alcohol intake frequency: holidays/special occasions only Patient Tobacco Use Status: Never used Tobacco e-Cigarette/Vaping Use: Never Used Second Hand Smoke Exposure: Yes Advance Directives Date on File: 10/14/17 service: No Current occupational status: employed 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 Frederick Scott, Nettie Babin, Everton Glass and colleagues, with an educational ephraim from [employer]. Review of Systems Eyes Reports no additional complaints ENT Reports no additional complaints Card Reports no additional complaints Resp Reports no additional complaints GI Reports no additional complaints Reports no additional complaints Physical exam (Primary Care) BMI result Body Mass Index 26.0 Tobacco/Smoking Status: Tobacco use Status Tobacco use date assessed 02/21/23 06/12/23 12:58 Patient Tobacco Use Status Never used Tobacco 06/12/23 12:58 e-Cigarette/Vaping Use Never Used 06/12/23 12:58 Thrive Assessment: Date of Thrive Assessment Date Thrive assessed 08/22/22 06/12/23 12:58 Telehealth Telehealth Location of provider rendering services: practice address Location of patient: address on file Patient Identification confirmed using: Name, : Yes Telehealth method: voice only Patient verbally consented to treatment: Yes Patient verbally consented to billing insurance company: Yes Patient informed of any privacy concerns related to visit: Yes Assessment and Plan Assessment & Plan (1) Neck pain: Code(s): M54.2 - Cervicalgia Plan: Headache symptoms and neck pain symptoms have resolved. (2) Essential (primary) hypertension: Code(s): I10 - Essential (primary) hypertension (3) Pancytopenia: Code(s): D61.818 - Other pancytopenia Plan: Blood work has been ordered. Will call with results. Orders: Orders Complete Blood Count no Diff 06/12/23 I10 - Essential (primary) hypertension, M54.2 - Cervicalgia Lipid Panel 06/12/23 I10 - Essential (primary) hypertension, M54.2 - Cervicalgia Thyroid Stimulating Hormone 06/12/23 I10 - Essential (primary) hypertension, M54.2 - Cervicalgia Basic Metabolic Panel 06/12/23 I10 - Essential (primary) hypertension, M54.2 - Cervicalgia Liver Panel 06/12/23 I10 - Essential (primary) hypertension, M54.2 - Cervicalgia UA and rflx microscopic 06/12/23 I10 - Essential (primary) hypertension, M54.2 - Cervicalgia Medications: Refilled metoprolol succinate ER 25 mg PO DAILY 90 tabs 1RF Coding Level of Care Code Tele Est Pt Level 3 (45115) Diagnoses Neck pain M54.2 Essential (primary) hypertension I10 Pancytopenia D61.818
[2023-06-12 12:55] VITALS: BMI 26.0
== END 2023-06-12 14:29 | disposition home or self-care (01) ==
LOC: HO.HMGH 12:58
PROVIDERS: PCP Internal Medicine; Visit Provider Internal Medicine
DX: M54.2 Cervicalgia (principal); I10 Essential (primary) hypertension; D61.818 Other pancytopenia
CPT/HCPCS: 99213

== ENCOUNTER 2023-09-11 13:02 | Outpatient (AMB) | payer OTHER, SELFPAY ==
--- NOTE | 2023-09-11 13:06 | A.OFFPC_ITS ---
Vital Signs 09/11/23 13:08 BP 130/80 Blood Pressure Location Lt brachial Position Sitting Pulse 58 Pulse Source Pulse Oximeter Pulse Oximetry (%) 100 Oxygen Delivery Method Room Air Intake Visit Reasons: Annual Exam Intake Note: Patient is here today for a physical. Complaint of dry nose and scarps. 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: Not Required per policy Accompanied by: Self / Same As Patient Allergies morphine [MORPHINE] Allergy (Intermediate, Verified 09/11/23 13:40) VOMITING amoxicillin [Amoxicillin] Allergy (Mild, Verified 09/11/23 13:40) HIVES latex Allergy (Mild, Verified 09/11/23 13:40) Rash sulfamethoxazole [From Bactrim] Allergy (Mild, Verified 09/11/23 13:40) HIVES trimethoprim [From Bactrim] Allergy (Mild, Verified 09/11/23 13:40) HIVES Medication List - Last Reconciled 09/11/23 by Elliot Kitchen MD arm brace (Wrist Brace) As directed aspirin 81 mg PO DAILY calcium citrate-vitamin D3 250 mg-5 mcg (200 unit) 2 tabs PO BID cyclobenzaprine 10 mg PO BEDTIME docusate sodium (Colace) 100 mg PO .DAILY WITH FOOD 90 days fluticasone propionate 50 mcg/actuation (Flonase Allergy Relief) 1 spray intranasal DAILY hydroxyzine HCl 25 mg PO BEDTIME PRN inulin (Fiber Gummies) 2 grams PO BID [magnesium ] metoprolol succinate ER 25 mg PO DAILY multivitamin 1 tab PO DAILY omeprazole 20 mg PO BID sodium fluoride-pot nitrate 1.1-5 % (PreviDent 5000 Enamel Protect) use as directed venlafaxine ER 75 mg PO DAILY vitamin B complex (B Complex-Vitamin B12 tablet) 1 tab PO DAILY [zinc ] Tobacco use date assessed: 09/11/23 Fall risk assessment: No Falls in past year Last assessed Fall Risk: 09/11/23 Dental Screening Dental Screen Date: 09/11/23 Did you have a dental visit in the last 12 months?: Yes Did you have a dental problem in the last 6 months where you did not have access to dental care?: No Was dental information given to patient?: Patient has dentist HPI Annual Exam HPI Details 63-year-old female presents to the [facility] for an annual physical. FORMERLY [facility] Medical History COVID-19 Hx of allergic rhinitis Chronic pain syndrome Spondylosis of lumbar region without myelopathy or radiculopathy Spondylolisthesis Anxiety and depression Intestinal malabsorption following gastrectomy CAD (coronary artery disease) Essential (primary) hypertension Surgical History H/O arthroscopy of left knee History of esophagogastroduodenoscopy (EGD) Hx of colonoscopy S/P laparoscopic sleeve gastrectomy History of cholecystectomy History of bariatric surgery History of hysterectomy History of section Family History Father No problems noted. Mother Lung cancer Brother Colon cancer Family/Other Intestinal cancer Maternal Grandmother Breast cancer Social History Household Members: Family Housing: Apartment Are you a primary home health care social worker to a significant other at home: No Do you presently have visiting nurse or other home services: No Alcohol intake: current Alcohol intake frequency: holidays/special occasions only Patient Tobacco Use Status: Never used Tobacco e-Cigarette/Vaping Use: Never Used Second Hand Smoke Exposure: Yes Advance Directives Date on File: 10/14/17 service: No Current occupational status: employed 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 1. Little interest or pleasure in doing things: not at all 2. Feeling down, depressed, or hopeless: not at all 3. Trouble falling or staying asleep, or sleeping too much: not at all 4. Feeling tired or having little energy: not at all 5. Poor appetite or overeating: not at all 6. Feeling bad about yourself - or that you are a failure or have let yourself or your family down: not at all 7. Trouble concentrating on things, such as reading the newspaper or watching television: not at all 8. Moving or speaking so slowly that other people could have noticed. Or the opposite - being so fidgety or restless that you have been moving around a lot more than usual: not at all 9. Thoughts that you would be better off or of hurting yourself in some way: not at all Total score: 0 Depression Screening Interpretation: Negative Depression Screening Done: Yes Source: Developed by Drs. Frederick Scott, Nettie Babin, Everton Glass and colleagues, with an educational ephraim from [employer]. Thrive Questionnaire Date Thrive assessed: 09/11/23 I am a: Patient What is your living situation today?: I have a steady place to live Within the past 12 months, did the food you bought not last and you didn't have the money to get more?: Never true Within the past 12 months, did you worry whether your food would run out before you got money to buy more?: Never true Do you have trouble paying for medicines?: No Do you have trouble getting transportation to medical appointments?: No Do you have trouble paying your heating and electricity bill?: No Do you have trouble taking care of your child, family member or friend?: No Do you have trouble with day-to-day activities such as bathing, preparing meals, shopping, managing finances, etc.?: No Are you currently unemployed and looking for a job?: No Are you interested in more education?: No Currently or been in a relationship where the following occur: no concerns reported THRIVE Score: 0 AUDIT C Alcohol Use Questionnaire (AUDIT-C) 1. How often do you have a drink containing alcohol?: Never Total Score: 0 MIRIAM-7 AMB Questionnaire MIRIAM-7 Date MIRIAM - 7 assessed: 09/11/23 Feeling nervous, anxious, or on edge: 0 = Not at all Not being able to stop or control worryin = Not at all Worrying too much about different things: 0 = Not at all Trouble relaxin = Not at all Being so restless that it is hard to sit still: 0 = Not at all Becoming easily annoyed or irritable: 0 = Not at all Feeling afraid as if something awful might happen: 0 = Not at all Total MIRIAM-7 score (0-4 normal; 5-9 mild; 10-14 moderate; 15-21 severe): 0 Source: Developed by Nettie Barone, Everton Glass and colleagues, with an educational ephraim from [employer]. Physical exam (Primary Care) Vital Signs: Last Vital Signs Pulse 58 09/11/23 13:08 BP 130/80 09/11/23 13:08 Pulse Ox 100 09/11/23 13:08 Oxygen Delivery Method Room Air 09/11/23 13:08 Care Plan Goal for BP management: Blood pressure is in range. Continue current medications. Tobacco/Smoking Status: Tobacco use Status Tobacco use date assessed 09/11/23 09/11/23 13:15 Patient Tobacco Use Status Never used Tobacco 09/11/23 13:15 e-Cigarette/Vaping Use Never Used 09/11/23 13:15 PHQ-9: PHQ-9 Score PHQ-9: Total score 0 09/11/23 13:15 Depression Screening Interpretation: Negative Thrive Assessment: Date of Thrive Assessment Date Thrive assessed 09/11/23 09/11/23 13:15 Currently or been in a relationship where the following occur: no concerns reported Const General: cooperative and healthy appearing Nutritional Appearance: well nourished Orientation/consciousness: patient oriented x3 Limitations: no limitations HENMT Head: Yes normal to inspection Eyes General: appearance normal, both eyes and all related structures Neck Neck: Yes normal visual inspection Chest Chest palpation & inspection: normal palpation of entire chest wall Resp Effort & Inspection: normal respiratory effort Neuro General: patient oriented x3 Assessment and Plan Assessment & Plan (1) Pancytopenia: Code(s): D61.818 - Other pancytopenia Plan: Blood work has been ordered. Will call with the results. (2) Annual physical exam: Code(s): Z00.00 - Encounter for general adult medical examination without abnormal findings Plan: Patient is up-to-date on her mammogram and colonoscopy. Coding Level of Care Code Est Pt Prev Care >65y(91115) Diagnoses Pancytopenia D61.818 Annual physical exam Z00.00
[2023-09-11 13:08] VITALS: BP 130/80; PULSE 58; O2SAT 100
== END 2023-09-11 13:28 | disposition home or self-care (01) ==
PROVIDERS: PCP Internal Medicine; Visit Provider Internal Medicine
DX: D61.818 Other pancytopenia (principal); Z00.00 Encounter for general adult medical examination without abnormal findings
CPT/HCPCS: 99397

== ENCOUNTER 2024-03-02 15:04 | Outpatient (AMB) | payer OTHER, SELFPAY ==
[2024-03-02 15:06] VITALS: BP 99/70
--- NOTE | 2024-03-02 15:06 | A.OFFVIS_ITS ---
Vital Signs 03/02/24 15:06 Height 5 ft 6 in BP 99/70 Intake Visit Reasons: Follow up Medications Intake Note: Lynn presents to in office visit today in follow up of medications. CC: Patient states she is doing well and denies having any GI concerns today. 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 Code(s): K21.9 - Gastro-esophageal reflux disease without esophagitis Qualifiers: Esophagitis presence: without esophagitis Qualified Code(s): K21.9 - Gastro-esophageal reflux disease without esophagitis Plan: She continues to do well on her omeprazole, colace and fiber. She is very fatigued, she has hot flashes and can't sleep r/t menopause. She is on venlafaxine, I suggest a trial of OTC progesterone cream. ROV 6 mos. (2) Chronic idiopathic constipation: Code(s): K59.04 - Chronic idiopathic constipation Medications: Refilled omeprazole 20 mg PO BID 180 caps 2RF docusate sodium (Colace) 100 mg PO .DAILY WITH FOOD 90 caps 6RF 90 days TODAY'S VISIT She continues to do very well on omeprazole, docusate and fiber gummies. She remains satisfied with her GI regimen. Return office visit in 1 year [facility] Medical History COVID-19 Hx of allergic rhinitis Chronic pain syndrome Spondylosis of lumbar region without myelopathy or radiculopathy Spondylolisthesis Anxiety and depression Intestinal malabsorption following gastrectomy CAD (coronary artery disease) Essential (primary) hypertension Surgical History (Updated 03/02/24 @ 15:42 by TANVI Wright) H/O arthroscopy of left knee History of esophagogastroduodenoscopy (EGD) Hx of colonoscopy S/P laparoscopic sleeve gastrectomy History of cholecystectomy History of bariatric surgery History of hysterectomy History of section Family History Father No problems noted. 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[place] Cognitive needs: No Hearing needs: No Vision needs: Yes (glasses) Review of Systems Const Denies fatigue, Denies fever(s), Denies night sweats, Denies poor appetite and Denies weight loss Eyes Details: glasses Reports requires corrective lenses ENT Reports Normal hearing present, Denies dental pain, Denies dysphagia, Denies hearing loss, Denies mouth pain, Denies odynophagia, Denies throat swelling, Denies tongue swelling and Reports other (Dentition adequate) Card Reports no additional complaints Resp Reports no additional complaints GI Details: Denies abdominal pain, Denies melena, Denies bloating, Denies hematochezia, Reports constipation, Denies GI cramping, Denies dysphagia, Denies excessive flatus, Denies early satiety, Reports heartburn, Denies diarrhea, Denies nausea, Denies odynophagia, Denies vomiting and Denies hematemesis Skin/Breast Denies pruritus, Denies lesions, Denies rash and Denies jaundice Neuro Reports Normal hearing present and Denies Abnormal speech present Endo Denies fatigue Aller/Immun Denies throat swelling and Denies tongue swelling Physical Exam Vital Signs: Last Vital Signs BP 99/70 03/02/24 15:06 Const General: cooperative, no acute distress, well developed and well groomed Nutritional Appearance: average body habitus and well nourished Orientation/consciousness: oriented to person, oriented to place and oriented to time Limitations: No language barrier HEENT Head: Yes normocephalic and Yes atraumatic Eyes General: appearance normal, both eyes and all related structures Pupils: Equal, round and reactive pupils present Neck Neck: Yes normal visual inspection and Yes no lymphadenopathy Thyroid: Thyroid normal Resp Effort & Inspection: normal respiratory effort and able to speak in complete sentences Auscultation: clear to auscultation bilaterally Cardio Rate: regular rate Rhythm: regular rhythm Heart sounds: Normal, physiologic split S2 sound present Peripheral pulses: radial pulses present and posterior tibial pulses present GI Inspection: No distended and No Abdominal panniculus present Palpation (GI): Soft to palpation, nontender, no guarding, not rigid and No hepatosplenomegaly present Percussion: Yes normal to percussion Auscultation: normal bowel sounds Rectal Exam - Female: deferred Skin General skin exam: no rashes or lesions noted, turgor normal, skin not dry, no jaundice, No spider nevi and no striae Rashes: no rashes Nails: normal Neuro General: oriented to person, oriented to place and oriented to time Cranial nerves: Yes Equal, round and reactive pupils present and Yes Normal hearing present Speech: No Abnormal speech present Extrem General: Yes normal to inspection, No clubbing, No cyanosis and No edema Psych Appearance: grossly normal and well kempt Mental Status: mental status grossly normal Speech and movement: Normal speech and movement present Affect: normal affect Attitude: cooperative Thought process: Normal thought process present and not confabulating Thought content: Normal thought content present Insight: Fair insight present (Psych) Judgement: Fair judgement present (Psych) Assessment & Plan Assessment & Plan (1) GERD (gastroesophageal reflux disease): Comment: Pt also is s/p gastric sleeve. Code(s): K21.9 - Gastro-esophageal reflux disease without esophagitis Category: Medical Qualifiers: Esophagitis presence: without esophagitis Qualified Code(s): K21.9 - Gastro-esophageal reflux disease without esophagitis (2) Chronic idiopathic constipation: Code(s): K59.04 - Chronic idiopathic constipation Category: Medical Plan She continues to do very well on omeprazole, docusate and fiber gummies. She remains satisfied with her GI regimen. Return office visit in 1 year Medications: Changed From inulin 2 grams PO BID 180 tabs 6RF To inulin (Fiber Gummies) 2 grams PO BID 180 tabs 6RF Refilled omeprazole 20 mg PO BID 180 caps 2RF docusate sodium 100 mg PO DAILY 90 caps 6RF Coding Level of Care Code Est Pt Level 3 (09372) Diagnoses Gastroesophageal reflux disease without esophagitis K21.9 Esophagitis presence: without esophagitis Chronic idiopathic constipation K59.04
== END 2024-03-02 15:47 | disposition home or self-care (01) ==
PROVIDERS: PCP Internal Medicine; Visit Provider Nurse Practitioner
DX: K21.9 Gastro-esophageal reflux disease without esophagitis (principal); K59.04 Chronic idiopathic constipation
CPT/HCPCS: 99213

== ENCOUNTER → 2024-03-02 15:04 | Outpatient (BNVA) | payer OTHER, SELFPAY | PROVIDERS: PCP Internal Medicine; Visit Provider Nurse Practitioner ==

== ENCOUNTER → 2024-04-30 13:00 | Outpatient (BNV) | payer OTHER, SELFPAY | PROVIDERS: PCP Internal Medicine; Visit Provider Internal Medicine | DX: Z12.31 Encounter for screening mammogram for malignant neoplasm of breast (principal) | CPT/HCPCS: 77063; 77067 ==

== ENCOUNTER 2024-04-30 13:05 | Outpatient (REF) | payer OTHER, SELFPAY ==
--- NOTE | ~2024-04-30 | MM_ITS ---
EXAMINATION: MM SCREENING DIGITAL BREAST TOMOSYNTHESIS, BILATERAL CLINICAL INFORMATION: Screening. Asymptomatic. COMPARISON: Mammography: Comparison is made with available priors TECHNIQUE: Digital breast mammography with tomosynthesis is performed in both the craniocaudal and mediolateral oblique views along with computer-aided detection (CAD). FINDINGS: There are scattered areas of fibroglandular density (ACR BI-RADS breast composition Category b). There are no significant masses, abnormal calcifications, or other abnormalities. MM/MM tomosynthesis screening BI IMPRESSION: No mammographic evidence of malignancy. ASSESSMENT: BI-RADS BI-RADS 1 - Negative RECOMMENDATION: Routine annual mammography screening. 1 year F/U This examination should not preclude the clinical evaluation of a suspicious palpable abnormality. This patient's information was entered into a reminder system with a target due date for their next mammogram. Electronically signed by: Kamini Carmona DO 05/03/2024 05:46 PM EDT
== END 2024-04-30 13:06 | disposition home or self-care (01) ==
LOC: HO.MAMMO 13:05
PROVIDERS: PCP Internal Medicine; Visit Provider Internal Medicine
DX: Z12.31 Encounter for screening mammogram for malignant neoplasm of breast (principal)
CPT/HCPCS: 77063; 77067

== ENCOUNTER 2024-05-25 14:00 | Outpatient (REF) | payer OTHER, SELFPAY | END 2024-05-25 14:01 | disposition home or self-care (01) | LOC: HO.HOSX 14:00 | PROVIDERS: Visit Provider Orthopaedic Surgery | DX: Z13.89 Encounter for screening for other disorder (principal) ==

== ENCOUNTER 2024-09-21 14:54 | Outpatient (AMB) | payer OTHER, SELFPAY ==
--- NOTE | 2024-09-21 11:04 | MHC.OFFVISWM ---
VS Expanded 09/21/24 11:11 Height 5 ft 6 in Weight 161 lb 8 oz BMI 26.1 Intake Visit Reasons: (TV) PO LSG 01/06/19 Shaker Out Required: No Allergies morphine [MORPHINE] Allergy (Intermediate, Verified 03/02/24 15:08) VOMITING amoxicillin [Amoxicillin] Allergy (Mild, Verified 03/02/24 15:08) HIVES latex Allergy (Mild, Verified 03/02/24 15:08) Rash sulfamethoxazole [From Bactrim] Allergy (Mild, Verified 03/02/24 15:08) HIVES trimethoprim [From Bactrim] Allergy (Mild, Verified 03/02/24 15:08) HIVES Medication List - Last Reconciled 09/21/24 by RUPERT Jung arm brace (Wrist Brace) As directed aspirin 81 mg PO DAILY calcium citrate-vitamin D3 250 mg-5 mcg (200 unit) 2 tabs PO BID cyclobenzaprine 10 mg PO BEDTIME docusate sodium 100 mg PO DAILY fluticasone propionate 50 mcg/actuation (Flonase Allergy Relief) 1 spray intranasal DAILY hydroxyzine HCl 25 mg PO BEDTIME PRN inulin (Fiber Gummies) 2 grams PO BID [magnesium ] metoprolol succinate ER 25 mg PO DAILY multivitamin 1 tab PO DAILY multivitamin with minerals (Hair,Skin and Nails tablet) 1 tab PO DAILY omeprazole 20 mg PO BID sodium fluoride-pot nitrate 1.1-5 % (PreviDent 5000 Enamel Protect) use as directed venlafaxine ER 75 mg PO DAILY [zinc ] HPI Comments Details: This?a?61?yo female who is s/p LSG without hiatal hernia repair on?01/06/[address] Grijalva. Presents for 5 year 9 month post op visit. Weight today is 161.8 pounds with a bmi of 26.1. No complaints of nausea, emesis, abdominal pain or reflux. Reports infrequent but normal bowel movements every 1-2 days and uses stool softeners regularly. Constipation improved with fiber gummies. right leg is longer than left leg. Present meal plan includes: 2 hb eggs w 2 whole wheat grain bread w avocado NOOSA yogurt 6-11 gm yogurt w granola 1/2 c sm salad, nuts/berries/apple w 4 oz baked chicken drinking 80 oz ? Exercise routine includes: chair yoga and body stretches GERD: improved CASSIE: never DM: never HTN: improved Hyperlipidemia: improved Post op complications: none PFSH Medical History COVID-19 Hx of allergic rhinitis Chronic pain syndrome Spondylosis of lumbar region without myelopathy or radiculopathy Spondylolisthesis Anxiety and depression Intestinal malabsorption following gastrectomy CAD (coronary artery disease) Essential (primary) hypertension Surgical History (Updated 03/02/24 @ 15:42 by TANVI Wright) H/O arthroscopy of left knee History of esophagogastroduodenoscopy (EGD) Hx of colonoscopy S/P laparoscopic sleeve gastrectomy History of cholecystectomy History of bariatric surgery History of hysterectomy History of section Family History Father No problems noted. 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 [employer] Cognitive needs: No Hearing needs: No Vision needs: Yes (glasses) Telehealth Telehealth Telehealth Platform: Telephone Location of provider rendering services: practice address Location of patient: address on file Patient Identification confirmed using: Name, : Yes Telehealth method: voice only Patient verbally consented to treatment: Yes Patient verbally consented to billing insurance company: Yes Patient informed of any privacy concerns related to visit: Yes Minutes spent on Phone/Video with Pt.: 15 Assessment & Plan Assessment & Plan (1) S/P laparoscopic sleeve gastrectomy: Comment: DOS 01/06/19, Dr. Grijalva Code(s): Z98.84 - Bariatric surgery status Category: Surgical Plan: Recommend decreasing the toast at breakfast and aiming for a goal of approximately 65 g of protein per day. Discussed referral to [facility] in [place] given her reported leg length discrepancy. Encouraged to use the gym at work here at [employer] daily for 30 minutes focusing on cardiovascular activities such as treadmill or stationary bike Check yearly labs Return to clinic as scheduled. Orders: Orders Insulin Today D61.818 - Other pancytopenia, I10 - Essential (primary) hypertension, Z98.84 - Bariatric surgery status Hemoglobin A1c Today D61.818 - Other pancytopenia, I10 - Essential (primary) hypertension, Z98.84 - Bariatric surgery status Complete Blood Count Auto Diff Today D61.818 - Other pancytopenia, I10 - Essential (primary) hypertension, Z98.84 - Bariatric surgery status Lipid Panel Today D61.818 - Other pancytopenia, I10 - Essential (primary) hypertension, Z98.84 - Bariatric surgery status IRON PROFILE Today D61.818 - Other pancytopenia, I10 - Essential (primary) hypertension, Z.84 - Bariatric surgery status Comprehensive Met. Panel Today D61.818 - Other pancytopenia, I10 - Essential (primary) hypertension, Z98.84 - Bariatric surgery status C Reactive Protein Today D61.818 - Other pancytopenia, I10 - Essential (primary) hypertension, Z98.84 - Bariatric surgery status Vitamin B12 and Folate Today D61.818 - Other pancytopenia, I10 - Essential (primary) hypertension, Z98.84 - Bariatric surgery status Zinc Today D61.818 - Other pancytopenia, I10 - Essential (primary) hypertension, Z98.84 - Bariatric surgery status Vitamin B1 Today D61.818 - Other pancytopenia, I10 - Essential (primary) hypertension, Z98.84 - Bariatric surgery status Vitamin A Today D61.818 - Other pancytopenia, I10 - Essential (primary) hypertension, Z98.84 - Bariatric surgery status TSH reflex Free T4 Today D61.818 - Other pancytopenia, I10 - Essential (primary) hypertension, Z98.84 - Bariatric surgery status Ferritin Today D61.818 - Other pancytopenia, I10 - Essential (primary) hypertension, Z98.84 - Bariatric surgery status Vitamin D 25-OH Total Today D61.818 - Other pancytopenia, I10 - Essential (primary) hypertension, Z98.84 - Bariatric surgery status
[2024-09-21 11:11] VITALS: BMI 26.1
== END 2024-09-21 15:05 | disposition home or self-care (01) ==
LOC: HO.HBS 14:54
PROVIDERS: PCP Internal Medicine; Visit Provider Physician Assistant Surgical
DX: E66.3 Overweight (principal); Z68.26 Body mass index [BMI] 26.0-26.9, adult; Z90.3 Acquired absence of stomach [part of]; Z98.84 Bariatric surgery status
CPT/HCPCS: 98967

== ENCOUNTER → 2024-09-21 14:54 | Outpatient (BNVA) | payer OTHER, SELFPAY | PROVIDERS: PCP Internal Medicine; Visit Provider Physician Assistant Surgical | DX: D61.818 Other pancytopenia (principal); Z98.84 Bariatric surgery status; I10 Essential (primary) hypertension ==

== ENCOUNTER 2024-10-07 15:08 | Outpatient (AMB) | payer OTHER, SELFPAY ==
--- NOTE | 2024-10-07 15:50 | MHC.PC.OV ---
Vital Signs 10/07/24 15:51 Height 5 ft 6 in Weight 167 lb 4 oz BMI 27.0 BP 130/78 Blood Pressure Location Lt brachial Position Sitting Pulse 68 Pulse Source Pulse Oximeter Temp 97.1 F Temp Source Temporal Artery Scan Pulse Oximetry (%) 98 Oxygen Delivery Method Room Air Intake Visit Reasons: Annual exam Intake Note: Patient is here today for a physical. Pressroom Worker Required: No Medical Malpractice Paralegal: Not Required per policy Accompanied by: Self / Same As Patient Allergies morphine [MORPHINE] Allergy (Intermediate, Verified 10/08/24 19:22) VOMITING amoxicillin [Amoxicillin] Allergy (Mild, Verified 10/08/24 19:22) HIVES latex Allergy (Mild, Verified 10/08/24 19:22) Rash sulfamethoxazole [From Bactrim] Allergy (Mild, Verified 10/08/24 19:22) HIVES trimethoprim [From Bactrim] Allergy (Mild, Verified 10/08/24 19:22) HIVES Medication List - Last Reconciled 10/08/24 by Elliot Kitchen MD arm brace (Wrist Brace) As directed aspirin 81 mg PO DAILY calcium citrate-vitamin D3 250 mg-5 mcg (200 unit) 2 tabs PO BID cyclobenzaprine 10 mg PO BEDTIME docusate sodium 100 mg PO DAILY fluticasone propionate 50 mcg/actuation (Flonase Allergy Relief) 1 spray intranasal DAILY hydroxyzine HCl 25 mg PO BEDTIME PRN inulin (Fiber Gummies) 2 grams PO BID [magnesium ] metoprolol succinate ER 25 mg PO DAILY multivitamin 1 tab PO DAILY multivitamin with minerals (Hair,Skin and Nails tablet) 1 tab PO DAILY omeprazole 20 mg PO BID sodium fluoride-pot nitrate 1.1-5 % (PreviDent 5000 Enamel Protect) use as directed venlafaxine ER 75 mg PO DAILY [zinc ] Tobacco use date assessed: 10/07/24 Fall risk assessment: No Falls in past year Last assessed Fall Risk: 10/07/24 Dental Screening Dental Screen Date: 10/07/24 Did you have a dental visit in the last 12 months?: Yes Did you have a dental problem in the last 6 months where you did not have access to dental care?: No Was dental information given to patient?: Patient has dentist HPI Annual exam HPI Details 64 yr old female presents to the office requesting an annual physical. [facility] Medical History COVID-19 Hx of allergic rhinitis Chronic pain syndrome Spondylosis of lumbar region without myelopathy or radiculopathy Spondylolisthesis Anxiety and depression Intestinal malabsorption following gastrectomy CAD (coronary artery disease) Essential (primary) hypertension Surgical History H/O arthroscopy of left knee History of esophagogastroduodenoscopy (EGD) Hx of colonoscopy S/P laparoscopic sleeve gastrectomy History of cholecystectomy History of bariatric surgery History of hysterectomy History of section Family History Father No problems noted. 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 Cognitive needs: No Hearing needs: No Vision needs: Yes (glasses) Questionnaire PHQ-9 Over the last 2 weeks, how often have you been bothered by any of the following problems? 1. Little interest or pleasure in doing things: not at all 2. Feeling down, depressed, or hopeless: not at all 3. Trouble falling or staying asleep, or sleeping too much: not at all 4. Feeling tired or having little energy: not at all 5. Poor appetite or overeating: not at all 6. Feeling bad about yourself - or that you are a failure or have let yourself or your family down: not at all 7. Trouble concentrating on things, such as reading the newspaper or watching television: not at all 8. Moving or speaking so slowly that other people could have noticed. Or the opposite - being so fidgety or restless that you have been moving around a lot more than usual: not at all 9. Thoughts that you would be better off or of hurting yourself in some way: not at all Total score: 0 Depression Screening Interpretation: Negative Depression Screening Done: Yes Source: Developed by Drs. Frederick Scott, Nettie Babin, Everton Glass and colleagues, with an educational ephraim from [employer]. Thrive Questionnaire Date Thrive assessed: 10/07/24 I am a: Patient What is your living situation today?: I have a steady place to live Within the past 12 months, did the food you bought not last and you didn't have the money to get more?: I choose not to answer this question Within the past 12 months, did you worry whether your food would run out before you got money to buy more?: I choose not to answer this question Do you have trouble paying for medicines?: I choose not to answer this question Do you have trouble getting transportation to medical appointments?: I choose not to answer this question Do you have trouble paying your heating and electricity bill?: I choose not to answer this question Do you have trouble taking care of your child, family member or friend?: I choose not to answer this question Do you have trouble with day-to-day activities such as bathing, preparing meals, shopping, managing finances, etc.?: I choose not to answer this question Are you currently unemployed and looking for a job?: Yes Are you interested in more education?: I choose not to answer this question Please select the resources that you would like help with: None Currently or been in a relationship where the following occur: No concerns reported THRIVE Score: 0 AUDIT C Alcohol Use Questionnaire (AUDIT-C) 1. How often do you have a drink containing alcohol?: Never Total Score: 0 MIRIAM-7 AMB Questionnaire MIRIAM-7 Date MIRIAM - 7 assessed: 10/07/24 Feeling nervous, anxious, or on edge: 0 = Not at all Not being able to stop or control worryin = Not at all Worrying too much about different things: 0 = Not at all Trouble relaxin = Not at all Being so restless that it is hard to sit still: 0 = Not at all Becoming easily annoyed or irritable: 0 = Not at all Feeling afraid as if something awful might happen: 0 = Not at all Total MIRIAM-7 score (0-4 normal; 5-9 mild; 10-14 moderate; 15-21 severe): 0 Source: Developed by Drs. Frederick Scott, Nettie Babin, Everton Glass and colleagues, with an educational ephraim from [employer]. Physical exam (Primary Care) Vital Signs: Last Vital Signs Temp 97.1 F 10/07/24 15:51 Pulse 68 10/07/24 15:51 BP 130/78 10/07/24 15:51 Pulse Ox 98 10/07/24 15:51 Oxygen Delivery Method Room Air 10/07/24 15:51 BMI result Body Mass Index 27.0 Tobacco/Smoking Status: Tobacco use Status Tobacco use date assessed 10/07/24 10/07/24 15:56 Patient Tobacco Use Status Never used Tobacco 10/07/24 15:56 e-Cigarette/Vaping Use Never Used 10/07/24 15:56 PHQ-9: PHQ-9 Score PHQ-9: Total score 0 10/07/24 15:56 Depression Screening Interpretation: Negative Thrive Assessment: Date of Thrive Assessment Date Thrive assessed 10/07/24 10/07/24 15:56 Currently or been in a relationship where the following occur: No concerns reported Const General: cooperative and healthy appearing Nutritional Appearance: well nourished Orientation/consciousness: patient oriented x3 Limitations: no limitations HENMT Head: Yes normal to inspection Eyes General: appearance normal, both eyes and all related structures Neck Neck: Yes normal visual inspection Chest Chest palpation & inspection: normal palpation of entire chest wall Resp Effort & Inspection: normal respiratory effort Neuro General: patient oriented x3 Coding Level of Care Code Est Pt Prev Care >65y(26756) Diagnoses Right hip pain M25.551 Essential (primary) hypertension I10 Annual physical exam Z00.00 Assessment & Plan Assessment & Plan (1) Right hip pain: Code(s): M25.551 - Pain in right hip Plan: Physical therapy ordered. (2) Essential (primary) hypertension: Code(s): I10 - Essential (primary) hypertension Category: Medical Plan: BP in range. Continue medications at same dosage. BW ordered. Will call with results of blood work. (3) Annual physical exam: Code(s): Z00.00 - Encounter for general adult medical examination without abnormal findings Plan: Uptodate on screening procedures Orders: Orders PT Evaluation and Treatment 10/07/24 M25.551 - Pain in right hip Complete Blood Count no Diff 10/07/24 I10 - Essential (primary) hypertension Lipid Panel 10/07/24 I10 - Essential (primary) hypertension Basic Metabolic Panel 10/07/24 I10 - Essential (primary) hypertension Liver Panel 10/07/24 I10 - Essential (primary) hypertension Thyroid Stimulating Hormone 10/07/24 I10 - Essential (primary) hypertension UA and rflx microscopic 10/07/24 I10 - Essential (primary) hypertension Medications: Refilled metoprolol succinate ER 25 mg PO DAILY 90 tabs 5RF cyclobenzaprine 10 mg PO BEDTIME 30 tabs 0RF
[2024-10-07 15:51] VITALS: BP 130/78; PULSE 68; TEMP 36.2; O2SAT 98; BMI 27.0
== END 2024-10-07 16:52 | disposition home or self-care (01) ==
PROVIDERS: PCP Internal Medicine; Visit Provider Internal Medicine
DX: M25.551 Pain in right hip (principal); I10 Essential (primary) hypertension; Z00.00 Encounter for general adult medical examination without abnormal findings

== ENCOUNTER 2024-11-17 15:00 | Outpatient (RCR) | payer OTHER, SELFPAY ==
--- NOTE | 2024-10-18 16:10 | MHC.PT.EP ---
[facility] [place] Office [place] Office [place] Office [address] [phone] F: [phone] F: [phone] F: [phone] F: [phone] Physical Therapy Plan of Care Date of Evaluation: 10/12/24 Date of Surgery: Diagnosis: R hip pain Assessment: Pt is a 64 y/o female referred to PT for eval and treat of R hip pain which is resulting in decreased tolerance for walking long distances, sitting or standing for duration, as well as negotiating stairs secondary to increased posterior LE and hip flexor tissue tension, decreased LE and core strength, decreased posture and pain. Pt is deemed an appropriate candidate to receive skilled PT services to address their physical impairments in order to improve their functional ability. Frequency and Duration: The patient will be seen 2 x / wk x 4 wks. Short Term Goals: Initiate home program. Improve R hip baseline pain to to at most 3-5/10; initial; 5-8/10. Jail Goals: I with home program. Improve tolerance for standing to > 30 min with managed Sx. Improve tolerance for sitting > 30 min with managed Sx. Pt will improve LEFI outcome by at least 9 points. Treatment Plan: Modalities to reduce pain, spasms and effusion. Manual therapy to restore motion and function. Therapeutic exercise to improve strength and flexibility. Neuromuscular re-education for posture and balance. Therapeutic activities to return to functional activities of daily living. Electronically signed by: Bryan Frank PT Please sign and return to therapist. Thank you for your referral.
--- NOTE | 2024-11-17 16:09 | MHC.PT.DC ---
[facility] [place] Office [place] Office [place] Office [address] [facility] [phone] F: [phone] F: [phone] F: [phone] F: [phone] Physical Therapy Discharge Report Diagnosis: R hip pain Date of Surgery: Date of Evaluation: 10/12/24 Date of Discharge: 11/17/24 Treatments to Date: 8 Cancellations to Date: 1 No Shows to Date: 0 Discharge Status: Achieved Goals Improved Function Independent with HEP Patient Elected to Stop Discharge Summary: Lynn has been an active and motivated participant in her therapy in and out of the clinic and although she persists with some pain she has met her realistic goals, is I with her home program, and is in agreement with DC at this time. LEFI outcome improved form to 47. Electronically signed by: Bryan Frank PT. Please sign and return to therapist. Thank you for your referral.
== END 2024-11-17 15:30 | disposition home or self-care (01) ==
LOC: HO.PT 15:00
PROVIDERS: PCP Internal Medicine; Visit Provider Internal Medicine
DX: M25.551 Pain in right hip (principal)
CPT/HCPCS: 97110; 97161

== ENCOUNTER 2025-01-07 09:00 | Outpatient (AMB) | payer OTHER, SELFPAY ==
--- NOTE | 2025-01-07 08:54 | A.OFFVIS_ITS ---
VS Expanded 01/07/25 09:06 Height 5 ft 6 in Weight 163 lb 6 oz BMI 26.4 Intake Visit Reasons: (TV) PO LSG 01/06/19 Allergies morphine [MORPHINE] Allergy (Intermediate, Verified 10/08/24 19:22) VOMITING amoxicillin [Amoxicillin] Allergy (Mild, Verified 10/08/24 19:22) HIVES latex Allergy (Mild, Verified 10/08/24 19:22) Rash sulfamethoxazole [From Bactrim] Allergy (Mild, Verified 10/08/24 19:22) HIVES trimethoprim [From Bactrim] Allergy (Mild, Verified 10/08/24 19:22) HIVES HPI Comments Details: This?a?64?yo female who is s/p LSG without hiatal hernia repair on?01/06/[address] Grijalva. Presents for 6 year post op visit. Weight today is 163.6 pounds with a bmi of 26.4. No complaints of nausea, emesis, abdominal pain or reflux. Reports infrequent but normal bowel movements every 1-2 days and uses stool softeners regularly. Constipation improved with fiber gummies. right leg is longer than left leg. Taking MVI, kayce + D Present meal plan includes: 2 hb eggs or 1 whole wheat grain bread w avocado NOOSA yogurt 6-11 gm yogurt w granola 1/2 c sm salad, nuts/berries/apple w 4 oz baked chicken drinking 80 oz ? Exercise routine includes: chair yoga and body stretches GERD: improved CASSIE: never DM: never HTN: improved Hyperlipidemia: improved GERD:?0-5 scale ??0 = no symptoms ??1 = symptoms noticeable but not bothersome 2 =symptoms bothersome but not daily ? 3 = symptoms bothersome and daily 4 = symptoms affect daily activities 5 = symptoms are incapacitating, unable to do daily activities ? How bad is the heartburn: 2 ? Heartburn while lying down: 0 ? Heartburn when standing up: 0 ? Heartburn after meals: 2 ? Does heartburn change your diet: 0 ? Does heartburn wake you up from sleep: 0 ? Do you have difficulty swallowin ? Do you have pain with swallowin ? If you take medicine for your reflux, does this affect your daily life: 0 Satisfaction with present condition - satisfied or not satisfied: satisfied [facility] Medical History COVID-19 Hx of allergic rhinitis Chronic pain syndrome Spondylosis of lumbar region without myelopathy or radiculopathy Spondylolisthesis Anxiety and depression Intestinal malabsorption following gastrectomy CAD (coronary artery disease) Essential (primary) hypertension Surgical History (Updated 11/25/24 @ 12:31 by Kristel Chappell) H/O arthroscopy of left knee History of esophagogastroduodenoscopy (EGD) Hx of colonoscopy (~04/21/18) S/P laparoscopic sleeve gastrectomy History of cholecystectomy History of bariatric surgery History of hysterectomy History of section Family History Father No problems noted. 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 [employer] Cognitive needs: No Hearing needs: No Vision needs: Yes (glasses) Telehealth Telehealth Telehealth Platform: Telephone Location of provider rendering services: practice address Location of patient: address on file Patient Identification confirmed using: Name, : Yes Telehealth method: voice only Patient verbally consented to treatment: Yes Patient verbally consented to billing insurance company: Yes Patient informed of any privacy concerns related to visit: Yes Minutes spent on Phone/Video with Pt.: 15 Assessment & Plan Assessment & Plan (1) S/P laparoscopic sleeve gastrectomy: Comment: MARY CARMEN 01/06/19, Dr. Grijalva Code(s): Z98.84 - Bariatric surgery status Category: Surgical Plan: Discussed with the patient the importance of getting her labs done which were ordered back in September. She states she will do so. Additionally, discussed increasing exercise to incorporate walking outside daily. She was given information regarding the right BMI brianna so that she may incorporate a more structured consistent meal plan. Overall she feels well and has no significant complaints. We will have her return to the clinic in approximately 1 year.
[2025-01-07 09:06] VITALS: BMI 26.4
== END 2025-01-07 09:39 | disposition home or self-care (01) ==
LOC: HO.HBS 09:34
PROVIDERS: PCP Internal Medicine; Visit Provider Physician Assistant Surgical
DX: E66.3 Overweight (principal); Z68.26 Body mass index [BMI] 26.0-26.9, adult; Z98.84 Bariatric surgery status; Z90.3 Acquired absence of stomach [part of]
CPT/HCPCS: 98967

== ENCOUNTER → 2025-01-07 09:00 | Outpatient (BNVA) | payer OTHER, SELFPAY | PROVIDERS: PCP Internal Medicine; Visit Provider Physician Assistant Surgical | DX: D61.818 Other pancytopenia (principal); I10 Essential (primary) hypertension; K90.49 Malabsorption due to intolerance, not elsewhere classified; Z68.26 Body mass index [BMI] 26.0-26.9, adult; Z90.3 Acquired absence of stomach [part of]; Z90.49 Acquired absence of other specified parts of digestive tract; Z98.84 Bariatric surgery status | CPT/HCPCS: 98967 ==

== ENCOUNTER 2025-01-08 09:25 | Outpatient (REF) | payer OTHER, SELFPAY ==
[2025-01-08 09:39] LABS: MANUAL DIFF FLAG NO
[2025-01-08 10:03] LABS: Basophils Percent Auto 1.1 % (0-2); Eosinophils Absolute Auto 0.5 X10*3/uL (0.0-0.4); Eosinophils Percent Auto 12.7 % (0-4); Hematocrit 38.5 % (37.0-47.0); Hemoglobin 12.9 g/dl (12.0-16.0); Lymphocytes Absolute Auto 1.5 X10*3/uL (1.2-4.9); Lymphocytes Percent Auto 39.3 % (20-40); Mean Corpuscular HGB Conc 33.5 g/dl (31.0-35.0); Mean Corpuscular Hemoglobin 29.8 pg (27.0-33.0); Mean Corpuscular Volume 88.9 fL (80.0-98.0); Mean Platelet Volume 11.2 fL (9.4-12.3); Monocytes Absolute Auto 0.4 X10*3/uL (0.1-1.2); Monocytes Percent Auto 9.8 % (2-11); Neutrophils Absolute Auto 1.4 x10*3/uL (2.0-8.3); Neutrophils Percent Auto 37.1 % (45-73); Platelet Count 120 X10*3/uL (160-400); Red Blood Count 4.33 X10*6/uL (4.20-5.50); Red Cell Distribution Width 13.2 % (11.0-16.0); White Blood Count 3.8 X10*3/uL (4.8-10.8)
[2025-01-08 10:23] LABS: Appearance Urine Hazy; Color Urine Yellow; Glucose Urine UA Negative (Negative); Leukocyte Esterase Urine Trace (Negative); Nitrite Urine Negative (Negative); Specific Gravity - Urine >= 1.030 (1.005-1.025); UMIC TRIGGER UA YES; Urine Blood Negative (Negative); Urine Ketones Trace mg/dL (Negative); Urine Protein Negative (Neg-Trace)
[2025-01-08 10:27] LABS: Cholesterol 161 mg/dL (<200); HDL Cholesterol 66 mg/dL (>40); LDL Cholesterol Calculated 87 mg/dL (<100); Triglycerides 44 mg/dL (<150)
[2025-01-08 10:31] LABS: Alanine Aminotransferase 38 U/L (0-31); Anion Gap 12 (12-20); Aspartate Amino Transferase 46 U/L (5-31); Bilirubin Direct 0.2 mg/dL (0.0-0.5); Bilirubin Total 0.4 mg/dL (0.0-1.0); Blood Urea Nitrogen 8 mg/dL (9-16); C Reactive Protein 0.11 mg/dL (< or = 0.50); Calcium 9.5 mg/dL (8.4-10.2); Carbon Dioxide 24 mmol/L (22-29); Chloride 110 mmol/L (96-108); Cholesterol 163 mg/dL (<200); Estimated Glomerular Filt Rate > 60; Glucose Random 84 mg/dL (60-115); HDL Cholesterol 66 mg/dL (>40); Iron 77 mcg/dL (30-160); LDL Cholesterol Calculated 88 mg/dL (<100); Percent Iron Saturation 34 % (15-50); Sodium 142 mmol/L (135-145); Total Iron Binding Capacity 229 mcg/dL (228-428); Total Protein 7.5 g/dL (6.5-8.0); Triglycerides 45 mg/dL (<150); Unsaturated Iron Binding 152 ug/dL
[2025-01-08 10:33] LABS: Estimated Average Glucose 105 mg/dL; Hemoglobin A1c % 5.3 % (<6.0)
[2025-01-08 10:46] LABS: Alkaline Phosphatase 90 U/L (39-117)
[2025-01-08 10:55] LABS: Ferritin 389 ng/mL (10-250); Insulin 4 uU/mL (2-29); TSH reflex Free T4 1.14 uIU/mL (0.32-4.0); Thyroid Stimulating Hormone 1.14 uIU/mL (0.32-4.0); Vitamin D 25-OH Total 48.4 ng/mL (>30)
[2025-01-08 11:01] LABS: Folate 14.9 ng/mL (> or = 4.0); Vitamin B12 875 pg/mL (200-900)
[2025-01-11 23:02] LABS: Zinc 76 mcg/dL (60-130)
[2025-01-12 00:09] LABS: Vitamin A 33 mcg/dL (38-98)
[2025-01-14 14:58] LABS: Vitamin B1 19 nmol/L (8-30)
== END 2025-01-08 09:26 | disposition home or self-care (01) ==
LOC: HO.LAB 09:25
PROVIDERS: PCP Internal Medicine; Visit Provider Physician Assistant Surgical
DX: D61.818 Other pancytopenia (principal); Z98.84 Bariatric surgery status; I10 Essential (primary) hypertension; Z13.1 Encounter for screening for diabetes mellitus
CPT/HCPCS: 36415; 80053; 80061; 81001; 82248; 82306; 82607; 82728; 82746; 83036; 83525; 83540; 84425; 84443; 84590; 84630; 85025; 85027; 86140

== ENCOUNTER 2025-05-06 13:23 | Outpatient (REF) | payer OTHER, SELFPAY ==
--- NOTE | ~2025-05-06 | MM_ITS ---
EXAMINATION: MM SCREENING DIGITAL BREAST TOMOSYNTHESIS, BILATERAL CLINICAL INFORMATION: Screening. Asymptomatic. COMPARISON: Mammography: Comparison is made with available priors TECHNIQUE: Digital breast mammography with tomosynthesis is performed in both the craniocaudal and mediolateral oblique views along with computer-aided detection (CAD). FINDINGS: There are scattered areas of fibroglandular density. There are no significant masses, abnormal calcifications, or other abnormalities. MM/MM tomosynthesis screening BI IMPRESSION: No mammographic evidence of malignancy. ASSESSMENT: BI-RADS Category 1: Negative RECOMMENDATION: Routine annual mammography screening. 1 year F/U This examination should not preclude the clinical evaluation of a suspicious palpable abnormality. This patient's information was entered into a reminder system with a target due date for their next mammogram. Electronically signed by: Kamini Carmona DO 05/10/2025 12:24 PM EDT
--- OUTSIDE RECORDS SUMMARY | 2025-05-06 14:43 | XMS_ITS | Patient Health Record ---
Author Organization [facility] Address [address] [place] [address] Care Team Providers Care Weir Fisher Name Role Phone NONE, NONE Primary Care Provider Unavailabl e Eddie Waller Jr Unavailable Saroj Navarro Unavailable Unavailable Reason For Referral No Information Plan Of Treatment No Information Insurance Providers Payer Name Payer Address Payer Phone Subscriber Number Group Number Insured Name Patient Relationship to Insured Coverage Start Date Coverage End Date [facility] [address] [place] [phone] [id number] VIANNEY ROJAS Self - patient is the insured
--- OUTSIDE RECORDS SUMMARY | 2025-05-06 14:43 | XMS_ITS | Patient Health Record ---
Author Organization 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 Role Phone Tori BROWN, Jose Alejandro Primary Care Provider Guillermo Maurice Unavailable [phone] Allergies Allergen (clinical drug ingredient) Drug/Non Drug Allergy documented on EMR Reaction Allergy Type Onset Date Status amoxicillin Amoxicillin hives Drug Allergy Act elmer sulfamethoxazole / trimethoprim Bactrim hives Drug Allergy Active Reason For Referral No Information Medications Medication SIG (Take, Route, Fr equency, Duration) Notes Start Date End Date Status Metoprolol Succinate Active Aleve Active B-12 2500 MCG Sublingual Activ e Calcium 600 MG 1 tablet with meals Orally Twice a day Active Multivitamin Active Physical Therapy 3-4x per week for 3-4 weeks Active Venlafaxine HCl Acti ve Walking Boot/Pneumatic As directed Wear Daily; Duration: Until further notice 04/04/2017 Active Social History Tobacco Use: Social History Observation Description Date Details (start date - stop date) Never Smoker NA - NA Tobacco Use/Smoking Question Answer Notes Are you a: nonsmoker Additional Findings: Tobacco Non-User Current no n-smoker Alcohol Screen Question Answer Notes Did you have a drink containing alcohol in the p ast year? No Points 0 Interpretation Negative Tobacco use other than smoking: Question Answer Notes Are you an other tobacco user? No Plan Of Treatment Pending Test Test Name Order Date X ray : Foot, left 3V 04/04/2017 Insurance Providers Payer Name Payer Address Payer Phone Subscriber Number Group Number Insured Name Patient Relationship to Insured Coverage Start Date Coverage End Date [facility] [address] [place] [address] [phone] [id number] Lynn Biggs Self - patient is the insured Medical (General) History Medical History History ICD Code Back,Hip,and Knee pain chronic sinusitis Hypertension Measles Mumps Reflux Vascular grafts Surgical History Surgery Date(Month/Year) chalino Coy [facility] [place] 2006 left leg marlo removed 2006
== END 2025-05-06 13:24 | disposition home or self-care (01) ==
LOC: HO.MAMMO 13:23
PROVIDERS: PCP Internal Medicine; Visit Provider Internal Medicine
DX: Z12.31 Encounter for screening mammogram for malignant neoplasm of breast (principal)
CPT/HCPCS: 77063; 77067

== ENCOUNTER → 2025-05-06 13:30 | Outpatient (BNV) | payer OTHER, SELFPAY | PROVIDERS: PCP Internal Medicine; Visit Provider Internal Medicine | DX: Z12.31 Encounter for screening mammogram for malignant neoplasm of breast (principal) | CPT/HCPCS: 77063; 77067 ==